=== PATIENT | male | born 1935 | race Caucasian/White ===

== ENCOUNTER 2019-10-14 14:15 | Inpatient (IN) | payer MEDICARE, BC ==
[~2019-10-14] VITALS: Ht 177.8 cm; Wt 77.1 kg
[2019-10-14] MEDS ORDERED: NORVASC2.5 MG PO (14:28)
[2019-10-14] MEDS ORDERED: COREG12.5 MG PO (14:28)
[2019-10-14] MEDS ORDERED: ASPIRIN81 MG PO (14:28)
[2019-10-14] MEDS ORDERED: VALSARTAN-HCTZ1 EAC3 PO (14:29)
[2019-10-14] MEDS ORDERED: PRAVACHOL40 MG PO (14:30)
[2019-10-14] MEDS ORDERED: XALATAN 0.0052.5 ML EACH EYE (14:30)
[2019-10-14 14:59] LABS: BASOPHILS 0.1 % (0-2); EOSINOPHILS 0.3 % (0-7); HEMATOCRIT 42.9 % (42.0-54.0); HEMOGLOBIN 14.6 g/dL (13.5-17.5); IMMATURE GRANULOCYTES 0.4 % (0-5); LYMPHOCYTES 4.7 % (15-50); MCH 34.5 pg (26.0-34.0); MCV 101.4 fL (80.0-100.0); MEAN PLATELET VOLUME 11.3 fL (7.4-10.4); MONOCYTES 10.2 % (2-11); NEUTROPHILS 84.3 % (40-80); PLATELET COUNT 189 10x3/uL (130-400); RBC 4.23 10x6/uL (4.20-6.10); RDW 12.9 % (11.5-14.5); WBC 15.6 10x3/uL (4.8-10.8)
[2019-10-14 15:20] LABS: ANION GAP 14.5 mmol/L (8-16); CALCIUM 8.2 mg/dL (8.5-10.1); CARBON DIOXIDE 27.2 mmol/L (21.0-32.0); CREATININE - SERUM 2.6 mg/dL (0.6-1.3); POTASSIUM - SERUM 3.7 mmol/L (3.5-5.1)
[2019-10-14 15:26] LABS: ALBUMIN 2.6 g/dL (3.4-5.0); BILIRUBIN - TOTAL 0.77 mg/dL (0.2-1.3); PROTEIN - SERUM 6.4 g/dL (6.4-8.2)
[2019-10-14 16:30] LABS: APPEARANCE CLEAR (CLEAR); BILIRUBIN NEGATIVE (NEGATIVE); COLOR YELLOW (YELLOW); GLUCOSE NEGATIVE (NEGATIVE); KETONE NEGATIVE (NEGATIVE); NITRITE NEGATIVE (NEGATIVE); PROTEIN NEGATIVE (NEGATIVE); SPECIFIC GRAVITY 1.025 (1.005-1.020); UROBILINOGEN NORMAL (NORMAL)
--- NOTE | 2019-10-14 16:56 | NUR ---
TO CT VIA W/C
--- NOTE | 2019-10-14 18:36 | MORECARE ---
CASE MANAGEMENT DISCHARGE SUMMARY PATIENT: CORRIE OLIVA UNIT: [id number] ADM DATE: 10/14/19 AGE: 83 : 36 SEX: M ROOM/BED: D.2206 AUTHOR: TAVO STARKS PHYSICIAN: REFERRING PHYSICIAN: CHARLES HERNANDEZ MD DATE OF SERVICE: 10/14/19 Discharge Plan Patient Name: CORRIE OLIVA [facility] [facility] 1935 Planned Disposition: Home Anticipated Discharge Date: 10/16/19 Discharge Date: Expected LOS: 2 Initial Reviewer: [email or web address] Initial Review Date: 10/14/2019 Generated: 10/14/19 7:36 pm DCPIA - Discharge Planning Initial Assessment Updated by [email or web address]: Sweta Kerns on 10/14/19 6:35 pm * Is the patient Alert and Oriented? Yes * How many steps to enter\exit or inside your home? nONE * PCP Dr. Hernandez * Pharmacy [address] * Preadmission Environment Home with Family * ADLs Independent * Equipment Glucometer * List name and contact numbers for known caregivers / representatives who currently or will assist patient after discharge: Martha Oliva - spouse - [phone] * Additional services required to return to the preadmission environment? No * Can the patient safely return to the preadmission environment? Yes * Has this patient been hospitalized within the prior 30 days at any hospital? No Patient Name: CORRIE OLIVA Page [id number] at 1836 All edits/amendments must be made on the electronic document DICTATION DATE: 10/14/191834 CONTOUR PATH TAPE MILL OPERATOR: KETTY 10/14/191834 RPT#: [id number] DC DATE: STATUS: ADM IN [facility] [address] [place] [address] END OF REPORT
--- NOTE | 2019-10-14 18:42 | MORECARE ---
CASE MANAGEMENT DISCHARGE SUMMARY PATIENT: CORRIE OLIVA UNIT: [id number] ADM DATE: 10/14/19 AGE: 83 : 36 SEX: M ROOM/BED: D.2206 AUTHOR: RAUDELDOC PHYSICIAN: REFERRING PHYSICIAN: CHARLES HERNANDEZ MD DATE OF SERVICE: 10/14/19 Discharge Plan Patient Name: CORRIE OLIVA Facility: [facility]:[place] : 1935 Planned Disposition: Home Anticipated Discharge Date: 10/16/19 Discharge Date: Expected LOS: 2 Initial Reviewer: [email or web address] Initial Review Date: 10/14/2019 Generated: 10/14/19 7:42 pm DCP- Discharge Planning Updated by [email or web address]: Sweta Kerns on 10/14/19 5:[address] DC PLAN: Return home independently with his . ANTICIPATED DC NEEDS: denied known dc needs at time of assessment in the ER. CM met with patient to complete initial dc planning assessment. CM educated patient on the CM role and verbal consent given by patient to complete assessment. CM verified patient's address, phone number, and emergency contact phone numbers. Patient lives at home with his . At discharge patient plans to return home and feels this is a safe discharge. CM discussed availability of home health, rehab services, and medical equipment. Patient denied known discharge needs at this time. Transportation provider at discharge will be his . CM will continue to follow and will assist as needed with dc plans/needs. Sweta Kerns RN, [facility] DCPIA - Discharge Planning Initial Assessment Updated by [email or web address]: Sweta Kerns on 10/14/19 6:35 pm * Is the patient Alert and Oriented? Yes * How many steps to enter\exit or inside your home? nONE * PCP Dr. Hernandez * Pharmacy [facility] [address] [facility] * Preadmission Environment Home with Family * ADLs Independent * Equipment Glucometer * List name and contact numbers for known caregivers / representatives who currently or will assist patient after discharge: Martha Oilva - spouse - [phone] * Additional services required to return to the preadmission environment? No * Can the patient safely return to the preadmission environment? Yes * Has this patient been hospitalized within the prior 30 days at any hospital? No Last DP export: 10/14/19 5:36 p Patient Name: CORRIE OLIVA Page 81747 at 1842 All edits/amendments must be made on the electronic document DICTATION DATE: 10/14/191841 CINETECHNICIAN: KETTY 10/14/191841 RPT#: [id number] DC DATE: STATUS: ADM IN [facility] [address] [place] [address] END OF REPORT
[2019-10-14 20:12] VITALS: BP 93/50; BMI 24.4
[2019-10-15 00:56] VITALS: BP 93/51
[2019-10-15 05:46] VITALS: BP 95/55
[2019-10-15 06:38] LABS: BASOPHILS 0.1 % (0-2); EOSINOPHILS 0.4 % (0-7); HEMATOCRIT 38.9 % (42.0-54.0); IMMATURE GRANULOCYTES 0.4 % (0-5); LYMPHOCYTES 4.1 % (15-50); MCH 33.7 pg (26.0-34.0); MCHC 33.4 g/dL (31.0-37.0); MCV 100.8 fL (80.0-100.0); MEAN PLATELET VOLUME 11.4 fL (7.4-10.4); MONOCYTES 11.1 % (2-11); NEUTROPHILS 83.9 % (40-80); PLATELET COUNT 176 10x3/uL (130-400); RBC 3.86 10x6/uL (4.20-6.10); RDW 12.8 % (11.5-14.5); WBC 14.1 10x3/uL (4.8-10.8)
[2019-10-15 06:54] LABS: INR 0.96 (0.85-1.17); PROTIME 12.8 SECONDS (11.6-15.0)
[2019-10-15 07:05] LABS: ALBUMIN 2.3 g/dL (3.4-5.0); ANION GAP 12.3 mmol/L (8-16); BILIRUBIN - DIRECT 0.36 mg/dL (0.00-0.30); BILIRUBIN - INDIRECT 0.48 mg/dL (0.00-1.00); BILIRUBIN - TOTAL 0.84 mg/dL (0.2-1.3); CALCIUM 7.8 mg/dL (8.5-10.1); CARBON DIOXIDE 28.3 mmol/L (21.0-32.0); POTASSIUM - SERUM 3.6 mmol/L (3.5-5.1); PROTEIN - SERUM 5.9 g/dL (6.4-8.2)
--- NOTE | 2019-10-15 07:14 | HP ---
PATIENT: CORRIE SEVILLA MEDICAL RECORD: [id number] ACCOUNT: [id number] LOCATION:D.MS [address] : 37 ADMISSION DATE: 10/14/19 PCP: CHARLES NGO MD HISTORY AND PHYSICAL EXAMINATION REASON FOR ADMISSION: Abdominal pain, vomiting, and lightheadedness. HISTORY OF PRESENT ILLNESS: The patient is an 83-year-old male with history of CAD, post-occlusion of the RCA and LAD, cardiomyopathy, hypertension, dyslipidemia, and carotid stenosis with a left chronic carotid occlusion. He had noted onset of some abdominal discomfort and constipation four days prior to admission. He has a history of chronic rectal stenosis and sometimes has trouble passing bowels. His blood pressure because quite elevated, abdominal pain and [place]. The laboratory and x-ray was not ordered but said they did not know what was quite wrong with him, but to go on clear liquids, which he did. He did develop some diarrhea. He came to the office today. He said he has been unable to eat or drink anything very much due to abdominal discomfort. No nausea or vomiting, however. He came to the office today and his pressure was 80/60 and he was directly sent to the ED for evaluation. He has been given IV fluids with some improvement in his blood pressure. 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 Last echo 12/08 with LVEF 45% with basal and mid inferior akinesis, mild LVH. Carotid ultrasound of 12/08 showed a 50% RCA stenosis. Also, alcohol excess. PAST SURGICAL HISTORY: He has had bilateral foot for Pes planus and cardiac catheterization as mentioned above. Surgery on his ankles was ankle fusions. FAMILY HISTORY: Father at 59 of stroke. Mother at 49 from CAD and acute myocardial infarction. SOCIAL HISTORY: He was a pack smoker for many years, quit about 10 years ago. His states he drinks starting about 1:00 in the afternoon until he falls asleep at night, hard liquor. He has never been admitted to the hospital for alcohol withdrawal. ALLERGIES: CODEINE. HOME MEDICATIONS: Which she has missed the last few days, amlodipine 2.5 mg p.o. daily, Coreg 12.5 mg b.i.d., valsartan/HCTZ 320/25 one p.o. q.a.m., pravastatin 80 mg with evening meal, and aspirin 81 mg daily. REVIEW OF SYSTEMS: GENERAL: Malaise without fever for the last 3-4 days, poor appetite. HEENT: No recent visual change, sinus congestion, or sore throat. RESPIRATORY: Mild short of breath on exertion, recent cough, congestion or hemoptysis. CARDIAC: No recent exertional chest pain, claudication or edema. HISTORY AND PHYSICAL [id number] CORRIE SEVILLA GASTROINTESTINAL: Nausea with abdominal discomfort, constipation and loose stools for the last 3-4 days. He has had vague abdominal pain, not severe. ENDOCRINE: Denies polyuria, polydipsia, heat or cold intolerance. NEUROLOGIC: No history of stroke with carotid occlusion on the left. INTEGUMENT: No recent headache, seizure disorder. MUSCULOSKELETAL: Chronic lumbago without sciatica. GENITOURINARY: Nocturia twice nightly. PHYSICAL EXAMINATION: GENERAL: Alert 83-year-old male at this time, in no acute distress. VITAL SIGNS: Show temperature 98.4 Fahrenheit, pulse 96, respirations of 20, blood pressure 91/44, sat 96% on room air. HEENT: Normocephalic. Eyes are clear. NECK: He has faint bruit in the right carotid. II/ left is unremarkable. HEART: Regular rate and rhythm, without MGR. PMI appropriate. LUNGS: Distant breath sounds with increased AP diameter. No rales. ABDOMEN: Slightly distended with hypoactive bowel sounds, nontender throughout. RECTAL: Deferred due to rectal stenosis. EXTREMITIES: No CC&E. He has evidence of previous pes planus and ankle fusion changes. No acrocyanosis. NEUROLOGIC: Oriented to person, place, and time. Cranial nerves intact. Gait was normal. LABORATORY DATA: His white count of 15.6 thousand with 84 polys, 4 lymphs. Platelet count 109,000, H and H is 14.6 and 42.9 with MCV of 101.4. Chemistries: BUN and creatinine are 82 and 2.6. His last creatinine in my office was 1.5. Liver functions are normal. Lipase and amylase are normal. Potassium is 3.7. UA shows specific gravity 1.025, otherwise unremarkable. Abdominal x-ray unremarkable. CT of the abdomen with oral contrast shows gallbladder wall thickening with pericholecystic fluid and inflammation of the adjacent fat and multiple small calculi are present. Calculus in the region of the common bile duct. No bile duct dilatation is noted. Pancreas appears normal. Bilateral perinephric inflammation nonspecific and extensive aortic atherosclerosis with maximum diameter of 2.9 cm. ASSESSMENT: Acute cholelithiasis/cholecystitis, acute renal failure due to dehydration, prerenal. History of vascular pathology with carotid occlusive disease, coronary artery disease, and peripheral vascular disease, hypertension, hyperlipidemia, alcohol excess. PLAN: Discussed with his , she states he drinks fairly heavily at home. We will place on banana bag, IV fluids for hydration, and surgical consult. I will place him on IV antibiotics in the interim. TRANSINT:[id number] Voice Confirmation ID: [id number] DOCUMENT ID: [id number] HISTORY AND PHYSICAL [id number] CORRIE SEVILLA TIMOTHY MD at 0714 CC: [id number] DICTATION DATE: 10/14/19 172 MACHINE TOOL BUILDER: 10/14/19 1810 ADM IN [place] [id number] [place] [address]
--- NOTE | 2019-10-15 07:57 | NUR ---
ALERT AND ORIENTED. LUNGS CLEAR BILATERALLY. HEART SOUNDS S1 AND S2 HEARD IN ALL SANDOVAL. BOWEL SOUNDS ACTIVE X 4. SKIN INTACT WITHOUT REDNESS. IV TO RFA PATENT WITHOUT REDNESS. DENIES NEEDS. BED LOW. CALL SALAS AND PERSONAL ITEMS IN REACH. AT BEDSIDE. WILL CONTINUE TO MONITOR.
[2019-10-15 08:30] VITALS: BP 124/82
--- NOTE | 2019-10-15 09:38 | NUR ---
CONSENTS OBTAINED FOR PROCEDURE TOMORROW 10/16/2019. CLEAR LIQUID TRAY ORDERED PER DR SARAVIA. PATIENT DOES NOT WANT TO WEAR TELEMETRY. REMOVED AND RETURNED TO [facility] AT [facility]. IV UNHOOKED PER PATIENT REQUEST TO WALK AROUND UNIT.
[2019-10-15 12:55] VITALS: Ht 177.8 cm; Wt 77.1 kg
--- NOTE | 2019-10-15 13:48 | NUR ---
RESTING IN BED. DENIES NEEDS. WILL CONTINUE TO MONITOR.
[2019-10-15 15:06] VITALS: BP 93/51
--- NOTE | 2019-10-15 15:47 | NUR ---
PATIENT UP WALKING AROUND UNIT. CONFUSED. REORIENTED TO PLACE AND SITUATION. FALL PRECAUTIONS PLACED ON PATIENT. ATTEMPTED TO CALL . VOICEMAIL LEFT. WILL CONTINUE TO MONITOR.
[2019-10-15 16:45] VITALS: BP 97/51
--- NOTE | 2019-10-15 19:18 | NUR ---
IN BED WITH EYES CLOSED, RESTING QUIETLY, AT BEDSIDE. NO S/S OF DISTRESS NOTED. RESP EVEN AND UNLABORED. ABLE TO VOICE ALL NEEDS. WILL NOTE ANY CHANGE.
[2019-10-16] VITALS (15 sets, daily range): BP systolic 91–108; BP diastolic 45–65
--- NOTE | 2019-10-16 05:08 | NUR ---
I have reviewed this patient and I concur with the Shift Assessment completed by the Licensed Practical Nurse today this shift.
[2019-10-16 05:19] LABS: ALBUMIN 2.1 g/dL (3.4-5.0); BILIRUBIN - TOTAL 0.82 mg/dL (0.2-1.3); CALCIUM 7.8 mg/dL (8.5-10.1); CARBON DIOXIDE 26.1 mmol/L (21.0-32.0); CREATININE - SERUM 1.8 mg/dL (0.6-1.3); PROTEIN - SERUM 6.1 g/dL (6.4-8.2)
[2019-10-16 05:32] LABS: ANION GAP 13.7 mmol/L (8-16)
[2019-10-16 05:48] LABS: POTASSIUM - SERUM 2.8 mmol/L (3.5-5.1)
--- NOTE | 2019-10-16 09:03 | NUR ---
0830 NPO, PREOP MEDS GIVEN, TAKEN TO SURGERY PER BED
[2019-10-16] MEDS ORDERED: HYDROCODON-ACE1 EAC7 PO (10:37)
[2019-10-16] MEDS ORDERED: LEVOFLOXACIN500 MG PO (10:40)
--- NOTE | 2019-10-16 11:18 | NUR ---
RETURNED TO UNIT FROM PACU, 3 LAP SITES, NO BLEEDING NOTED, VITALS WNL, IN ROOM, NO DISTRESS NOTED
--- NOTE | 2019-10-16 16:05 | MORECARE ---
CASE MANAGEMENT DISCHARGE SUMMARY PATIENT: CORRIE OLIVA UNIT: [id number] ADM DATE: 10/14/19 AGE: 83 : 36 SEX: M ROOM/BED: D.2206 AUTHOR: TAVO STARKS PHYSICIAN: REFERRING PHYSICIAN: CHARLES HERNANDEZ MD DATE OF SERVICE: 10/16/19 Discharge Plan Patient Name: CORRIE OLIVA Facility: [facility]:[place] : 1935 Planned Disposition: Home Anticipated Discharge Date: 10/16/19 Discharge Date: Expected LOS: 2 Initial Reviewer: [email or web address] Initial Review Date: 10/14/2019 Generated: 10/16/19 5:04 pm Comments DCP- Discharge Planning Updated by [email or web address]: Carla Rivera on 10/16/19 2:[address] CM explained IMM to patient and family, patient received a copy, and additional copy placed on the chart. DCP- Discharge Planning Updated by [email or web address]: Sweta Kerns on 10/14/19 5:[address] DC PLAN: Return home independently with his . ANTICIPATED DC NEEDS: denied known dc needs at time of assessment in the ER. CM met with patient to complete initial dc planning assessment. CM educated patient on the CM role and verbal consent given by patient to complete assessment. CM verified patient's address, phone number, and emergency contact phone numbers. Patient lives at home with his . At discharge patient plans to return home and feels this is a safe discharge. CM discussed availability of home health, rehab services, and medical equipment. Patient denied known discharge needs at this time. Transportation provider at discharge will be his . CM will continue to follow and will assist as needed with dc plans/needs. Sweta Kerns RN, [facility] DCPIA - Discharge Planning Initial Assessment Updated by [email or web address]: Sweta Kerns on 10/14/19 6:35 pm * Is the patient Alert and Oriented? Yes * How many steps to enter\exit or inside your home? nONE * PCP Dr. Hernandez * Pharmacy [facility] [address] [facility] * Preadmission Environment Home with Family * ADLs Independent * Equipment Glucometer * List name and contact numbers for known caregivers / representatives who currently or will assist patient after discharge: Martha Oliva - spouse - [phone] * Additional services required to return to the preadmission environment? No * Can the patient safely return to the preadmission environment? Yes * Has this patient been hospitalized within the prior 30 days at any hospital? No Coverage Notice Reviewer: [email or web address] Vick Rivera Notice Issued Date-Time: 10/16/2019 15:20 Notice Type: IM Discharge Notice Notice Delivered To: Patient Relationship to Patient: Power Machine Operator Name: Delivery Method: HAND - Hand Delivered Sammie Days: Prior Verbal Notification: Recipient Understood Notice: Yes Recipient Signature: Yes Med Rec Note Co-signed by Attending: Coverage Notice Comment: Last DP export: 10/14/19 5:42 p Patient Name: CORRIE OLIVA Page [id number] at 1605 All edits/amendments must be made on the electronic document DICTATION DATE: 10/16/191603 SALES REPRESENTATIVE GIRLS' APPAREL: KETTY 10/16/19 160 RPT#: [id number] DC DATE: STATUS: ADM IN [facility] [address] [place] [address] END OF REPORT
--- NOTE | 2019-10-16 19:32 | NUR ---
1899 PT NO VOID SINCE SURGERY, EXPLAINED IMPORTANCE TO PT AND , PT BECAME IRRITATED THAT I WAS RUSHING HIM SO HE WASNT IN THE MOOD TO URINATE, NIGHT NURSE AWARE
--- NOTE | 2019-10-16 20:00 | NUR ---
RESTING COMFORTABLY IN BED WITH AT BEDSIDE. A/O WITH NO SIGNS OF ACUTE DISTRESS. IV TO THE LT FOREARM WITH NO REDNESS OR SWELLING. LAP SITES NOTED TO THE ABDOMEN X3 WITH NADEEN DRAINING BLOODY OUTPUT. ABDOMEN FIRM. BED ALARM ON AND NC @4L. DENIES NO OTHER NEEDS AT THIS TIME. CONTINUE PLAN OF CARE.
[2019-10-16 20:15] LABS: ANION GAP 10.9 mmol/L (8-16); CARBON DIOXIDE 26.3 mmol/L (21.0-32.0); CREATININE - SERUM 1.6 mg/dL (0.6-1.3); POTASSIUM - SERUM 4.2 mmol/L (3.5-5.1)
[2019-10-17] VITALS: BP 98/50
--- NOTE | 2019-10-17 02:03 | NUR ---
HASN'T VOIDED SO BLADDER SCAN PERFORMED. BLADDER SCAN SHOWEED 715. IN AND OUT CATH PERFORMED. DRAINED 900ML OF URINE. PT TOLERATED WELL. DENIES NO OTHER NEEDS AT THIS TIME. CONTINUE TO MONITOR.
[2019-10-17 04:00] VITALS: BP 95/51
[2019-10-17 06:50] LABS: BASOPHILS 0.3 % (0-2); EOSINOPHILS 0 % (0-7); HEMOGLOBIN 10.7 g/dL (13.5-17.5); IMMATURE GRANULOCYTES 0.6 % (0-5); LYMPHOCYTES 10.9 % (15-50); MCH 33.5 pg (26.0-34.0); MCHC 32.4 g/dL (31.0-37.0); MEAN PLATELET VOLUME 10.8 fL (7.4-10.4); MONOCYTES 7.1 % (2-11); NEUTROPHILS 81.1 % (40-80); PLATELET COUNT 185 10x3/uL (130-400); RBC 3.19 10x6/uL (4.20-6.10); RDW 13.2 % (11.5-14.5)
[2019-10-17 06:53] LABS: MCV 103.4 fL (80.0-100.0); WBC 7.8 10x3/uL (4.8-10.8)
[2019-10-17 07:04] LABS: ALBUMIN 1.7 g/dL (3.4-5.0); ANION GAP 11.2 mmol/L (8-16); BILIRUBIN - DIRECT 0.22 mg/dL (0.00-0.30); BILIRUBIN - INDIRECT 0.26 mg/dL (0.00-1.00); BILIRUBIN - TOTAL 0.48 mg/dL (0.2-1.3); CARBON DIOXIDE 23.7 mmol/L (21.0-32.0); CREATININE - SERUM 1.3 mg/dL (0.6-1.3); POTASSIUM - SERUM 3.9 mmol/L (3.5-5.1); PROTEIN - SERUM 5.5 g/dL (6.4-8.2)
[2019-10-17 08:49] VITALS: BP 106/68
--- NOTE | 2019-10-17 09:15 | NUR ---
PT AMBULATING WITH PT AT THIS TIME. NO ACUTE DISTRESS NOTED. O2 @ 4L NC IN PLACE. IV TO LEFT FOREARM WITH D5 1/2 WITH 20KCL @ 75ML/HR INFUSING VIA PUMP. SITE WITHOUT REDNESS OR EDEMA. DENIES PAIN AT THIS TIME. LAP STIES TO ABDOMEN X 3 SITES WITHOUT REDNESS EDEMA OR DRAINAGE. NADEEN DRAIN INTACT TO RIGHT SIDE WITH SCANT AMOUNT OF BLOODY DRAINAGE. DENIES FURTHER NEEDS AT THIS TIME. CL WITHIN REACH. ENCORUAGED TO CALL WITH NEEDS. CONTINUE POC
[2019-10-17 12:45] VITALS: BP 118/64
--- NOTE | 2019-10-17 14:16 | NUR ---
NUTRITION F/U PT WITH VISITOR AT BEDSIDE. TOLERATING FULL LIQUID DIET WITH 50 TO 75% INTAKE. WILL CONTINUE TO PROVIDE DIET, MONITOR PO INTAKE. RD FOLLOWING
[2019-10-17 17:49] VITALS: BP 112/68
[2019-10-17 20:00] VITALS: BP 80/40
--- NOTE | 2019-10-17 20:00 | NUR ---
ALERT RRESTING IN BED, DENIES PAIN OR NEEDS AT THIS TIME, SEE SHIFT ASSESSMENT, CALL LIGHT IN REACH
[2019-10-18] VITALS: BP 115/59
[2019-10-18 04:00] VITALS: BP 100/61
[2019-10-18 05:57] LABS: ANION GAP 10.8 mmol/L (8-16); CALCIUM 7.2 mg/dL (8.5-10.1); CARBON DIOXIDE 25.2 mmol/L (21.0-32.0); CREATININE - SERUM 1.3 mg/dL (0.6-1.3); MAGNESIUM - SERUM 2.9 mg/dL (1.8-2.4)
[2019-10-18 06:11] LABS: BASOPHILS 0.1 % (0-2); EOSINOPHILS 1.2 % (0-7); HEMATOCRIT 33.3 % (42.0-54.0); HEMOGLOBIN 10.3 g/dL (13.5-17.5); IMMATURE GRANULOCYTES 0.9 % (0-5); LYMPHOCYTES 7.2 % (15-50); MCH 31.6 pg (26.0-34.0); MCHC 30.9 g/dL (31.0-37.0); MCV 102.1 fL (80.0-100.0); MEAN PLATELET VOLUME 11.2 fL (7.4-10.4); MONOCYTES 5.8 % (2-11); NEUTROPHILS 84.8 % (40-80); RBC 3.26 10x6/uL (4.20-6.10); RDW 13.4 % (11.5-14.5)
[2019-10-18 06:16] LABS: PLATELET COUNT 242 10x3/uL (130-400)
[2019-10-18 09:16] VITALS: BP 89/62
--- NOTE | 2019-10-18 12:01 | NUR ---
Rehab Note- Acute Inpatient Rehab prescreen order received. The patient is a good inpatient rehab candidiate if in agreeance with [facility] Acute Inpatient Rehab, we'll accept when medically stable and ready for discharge from the acute hospital. Thank you for this referral! Melchor Franks RN Clinical Liaison, [facility] Rehab
[2019-10-18 13:10] VITALS: BP 121/61
--- NOTE | 2019-10-18 16:04 | MORECARE ---
CASE MANAGEMENT DISCHARGE SUMMARY PATIENT: CORRIE OLIVA UNIT: [id number] ADM DATE: 10/14/19 AGE: 83 : 36 SEX: M ROOM/BED: D.2206 AUTHOR: RAUDELDOC PHYSICIAN: REFERRING PHYSICIAN: CHARLES HERNANDEZ MD DATE OF SERVICE: 10/18/19 Discharge Plan Patient Name: CORRIE OLIVA Facility: [facility]:[place] : 1935 Planned Disposition: Home Anticipated Discharge Date: 10/16/19 Discharge Date: Expected LOS: 2 Initial Reviewer: [email or web address] Initial Review Date: 10/14/2019 Generated: 10/18/19 5:04 pm Comments DCP- Discharge Planning Updated by [email or web address]: Shahnaz Mendez on 10/18/19 3:[address] PATIENT IS AGREEABLE TO INPATIENT REHAB AT [facility]. TRACEY SIGNED AT BEDSIDE AND IS AGREEABLE TOO. CM WILL CONTINUE TO FOLLOW AND ASSIST WITH DC PLANNING DCP- Discharge Planning Updated by [email or web address]: Carla Rivera on 10/16/19 2:[address] CM explained IMM to patient and family, patient received a copy, and additional copy placed on the chart. DCP- Discharge Planning Updated by [email or web address]: Sweta Kerns on 10/14/19 5:[address] DC PLAN: Return home independently with his . ANTICIPATED DC NEEDS: denied known dc needs at time of assessment in the ER. CM met with patient to complete initial dc planning assessment. CM educated patient on the CM role and verbal consent given by patient to complete assessment. CM verified patient's address, phone number, and emergency contact phone numbers. Patient lives at home with his . At discharge patient plans to return home and feels this is a safe discharge. CM discussed availability of home health, rehab services, and medical equipment. Patient denied known discharge needs at this time. Transportation provider at discharge will be his . CM will continue to follow and will assist as needed with dc plans/needs. Sweta Kerns RN, [facility] DCPIA - Discharge Planning Initial Assessment Updated by [email or web address]: Sweta Kerns on 10/14/19 6:35 pm * Is the patient Alert and Oriented? Yes * How many steps to enter\exit or inside your home? nONE * PCP Dr. Hernandez * Pharmacy [facility] [address] [facility] * Preadmission Environment Home with Family * ADLs Independent * Equipment Glucometer * List name and contact numbers for known caregivers / representatives who currently or will assist patient after discharge: Martha Oliva - [facility] - [phone] * Additional services required to return to the preadmission environment? No * Can the patient safely return to the preadmission environment? Yes * Has this patient been hospitalized within the prior 30 days at any hospital? No Coverage Notice Reviewer: [email or web address] Vick Rivera Notice Issued Date-Time: 10/16/2019 15:20 Notice Type: IM Discharge Notice Notice Delivered To: Patient Relationship to Patient: Chainstitch Elastic Attacher Name: Delivery Method: HAND - Hand Delivered Sammie Days: Prior Verbal Notification: Recipient Understood Notice: Yes Recipient Signature: Yes Med Rec Note Co-signed by Attending: Coverage Notice Comment: Reviewer: [email or web address] Vick Mendez Notice Issued Date-Time: 10/18/2019 15:59 Notice Type: Patient Choice Letter Notice Delivered To: Patient Relationship to Patient: Chainstitch Elastic Attacher Name: Delivery Method: HAND - Hand Delivered Sammie Days: Prior Verbal Notification: Recipient Understood Notice: Yes Recipient Signature: Yes Med Rec Note Co-signed by Attending: Coverage Notice Comment: INPATIENT REHAB AT [facility] Last DP export: 10/16/19 3:05 p Patient Name: CORRIE OLIVA Page 25726 at 1604 All edits/amendments must be made on the electronic document DICTATION DATE: 10/18/191603 ARCHITECTURAL ASSOCIATE: KETTY 10/18/19 160 RPT#: [id number] DC DATE: STATUS: ADM IN [facility] [address] [place] [address] END OF REPORT
--- NOTE | 2019-10-18 17:15 | NUR ---
PATIENT DISCHARGED TO REHAB WITH NADEEN DRAIN EMPTIED WITH 20CC NOTED. PT AND VERBALIZED UNDERSTANDING OF DISCHARGE INSTRUCTIONS.
--- NOTE | 2019-10-18 18:20 | MORECARE ---
CASE MANAGEMENT DISCHARGE SUMMARY PATIENT: CORRIE OLIVA UNIT: [id number] ADM DATE: 10/14/19 AGE: 83 : 37 SEX: M ROOM/BED: D.2206 AUTHOR: RAUDEL,DOC PHYSICIAN: REFERRING PHYSICIAN: CHARLES HERNANDEZ MD DATE OF SERVICE: 10/18/19 Discharge Plan Patient Name: CORRIE OLIVA Facility: [facility]:[place] : 1935 Planned Disposition: Home Anticipated Discharge Date: 10/16/19 Discharge Date: 10/18/2019 Expected LOS: 2 Initial Reviewer: [email or web address] Initial Review Date: 10/14/2019 Generated: 10/18/19 7:20 pm Comments DCP- Discharge Planning Updated by [id number]: Shahnaz Mendez on 10/18/19 3:[address] PATIENT IS AGREEABLE TO INPATIENT REHAB AT [facility]. TRACEY SIGNED AT BEDSIDE AND IS AGREEABLE TOO. CM WILL CONTINUE TO FOLLOW AND ASSIST WITH DC PLANNING DCP- Discharge Planning Updated by [email or web address]: Carla Rivera on 10/16/19 2:[address] CM explained IMM to patient and family, patient received a copy, and additional copy placed on the chart. DCP- Discharge Planning Updated by [email or web address]: Sweta Kerns on 10/14/19 5:[address] DC PLAN: Return home independently with his . ANTICIPATED DC NEEDS: denied known dc needs at time of assessment in the ER. CM met with patient to complete initial dc planning assessment. CM educated patient on the CM role and verbal consent given by patient to complete assessment. CM verified patient's address, phone number, and emergency contact phone numbers. Patient lives at home with his . At discharge patient plans to return home and feels this is a safe discharge. CM discussed availability of home health, rehab services, and medical equipment. Patient denied known discharge needs at this time. Transportation provider at discharge will be his . CM will continue to follow and will assist as needed with dc plans/needs. Sweta Kerns RN, [facility] DCPIA - Discharge Planning Initial Assessment Updated by [email or web address]: Sweta Kerns on 10/14/19 6:35 pm * Is the patient Alert and Oriented? Yes * How many steps to enter\exit or inside your home? nONE * PCP Dr. Hernandez * Pharmacy [address] [facility] * Preadmission Environment Home with Family * ADLs Independent * Equipment Glucometer * List name and contact numbers for known caregivers / representatives who currently or will assist patient after discharge: Martha Oliva - [facility] - [phone] * Additional services required to return to the preadmission environment? No * Can the patient safely return to the preadmission environment? Yes * Has this patient been hospitalized within the prior 30 days at any hospital? No Coverage Notice Reviewer: [email or web address] Vick Rivera Notice Issued Date-Time: 10/16/2019 15:20 Notice Type: IM Discharge Notice Notice Delivered To: Patient Relationship to Patient: Truck Loader Name: Delivery Method: HAND - Hand Delivered Sammie Days: Prior Verbal Notification: Recipient Understood Notice: Yes Recipient Signature: Yes Med Rec Note Co-signed by Attending: Coverage Notice Comment: Reviewer: [id number] - Shahnaz Mendez Notice Issued Date-Time: 10/18/2019 15:59 Notice Type: Patient Choice Letter Notice Delivered To: Patient Relationship to Patient: Truck Loader Name: Delivery Method: HAND - Hand Delivered Sammie Days: Prior Verbal Notification: Recipient Understood Notice: Yes Recipient Signature: Yes Med Rec Note Co-signed by Attending: Coverage Notice Comment: INPATIENT REHAB AT [facility] Last DP export: 10/18/19 3:04 p Patient Name: CORRIE OLIVA Page [id number] at 1820 All edits/amendments must be made on the electronic document DICTATION DATE: 10/18/191819 RAW MATERIAL HANDLER: KETTY 10/18/191819 RPT#: [id number] DC DATE:10/18/19 STATUS: DIS IN [facility] [address] [place] [address] END OF REPORT
--- NOTE | 2019-10-18 20:29 | NUR ---
OT NOTE: PT COMPLETED STANDING BALANCE WITH HYGIENE TASKS AT SINK LEVEL WITH SBA. PT COMPLETED BED MOB WITH SBA. PT STATED HE HAS PAIN IN ABDOMINAL AREA. NURSING AWARE. [phone] THANK YOU,LUANA MCDOWELL
== END 2019-10-18 17:15 | DRG 853 ==
LOC: D.ER 14:15 → D.MS 17:46
PROVIDERS: Family Medicine; Surgery; ADMIT Family Medicine; ATTEND Family Medicine
PROC: 0FT44ZZ Resection of Gallbladder, Percutaneous Endoscopic Approach (ICD-10-PCS; principal; 2019-10-16 09:30)
DX: A41.9 Sepsis, unspecified organism (principal); K65.9 Peritonitis, unspecified; G92 Toxic encephalopathy; K80.00 Calculus of gallbladder with acute cholecystitis without obstruction; N17.9 Acute kidney failure, unspecified; K82.A2 Perforation of gallbladder in cholecystitis; K82.A1 Gangrene of gallbladder in cholecystitis; I25.10 Atherosclerotic heart disease of native coronary artery without angina pectoris; I10 Essential (primary) hypertension; E78.5 Hyperlipidemia, unspecified; J44.9 Chronic obstructive pulmonary disease, unspecified

== ENCOUNTER → 2020-01-29 12:43 | Outpatient (CLI) | payer MEDICARE, BC ==
[2019-10-31 10:18] VITALS: BMI 24.3
[~2020-01-29 12:43] MED LIST: ACETAMINOPHEN500 M1 PO; ASPIRIN81 MG PO; CARAFATE1 G PO; COREG12.5 MG PO; HYDROCODON-ACE1 EAC7 PO; LEVOFLOXACIN500 MG PO; LIBRIUM5 MG PO; MEGACE400 MG/10 PO; NITROQUICK0.4 MG SL; NORVASC2.5 MG PO; PRAVACHOL40 MG PO; THERAGRAN M [BK1 TAB PO; VALSARTAN-HCTZ1 EAC3 PO; VOLTAREN100 GM TOPICAL; XALATAN 0.0052.5 ML EACH EYE
== END | disposition home or self-care (01) ==
LOC: D.MRI 12:43
PROVIDERS: ATTEND Orthopaedic Surgery
DX: M86.071 Acute hematogenous osteomyelitis, right ankle and foot (principal)

== ENCOUNTER → 2020-01-30 14:55 | Outpatient (CLI) | payer MEDICARE, BC ==
[2019-10-31 10:18] VITALS: BMI 24.3
== END | disposition home or self-care (01) ==
LOC: D.MRI 14:55
PROVIDERS: ATTEND Orthopaedic Surgery
DX: M86.071 Acute hematogenous osteomyelitis, right ankle and foot (principal)

== ENCOUNTER 2020-02-14 09:31 | Outpatient (CLI) | payer MEDICARE, BC ==
[~2020-02-14] VITALS: Ht 177.8 cm; Wt 70.3 kg
--- NOTE | ~2020-02-14 | HEMODYNAMI ---
PATIENT:CORRIE SEVILLA MEDICAL RECORD: [id number] : 37 LOCATION:[facility] ADMISSION DATE: 02/14/20 Generatedon:02/14/202015:52 Patient name: CORRIE SEVILLA Patient #: [id number] SSN: : 1935 Date of study: 02/14/2020 Page: Of Hemodynamic Procedure Report Patient Data Patient Demographics Procedure consent was obtained First Name: CORRIE Gender: Male Last Name: ROEL : 1935 Patient #: [id number] Age: 84 year(s) Race: Unknown Additional ID: [id number] Contact details Address: [address] [place] [address] State: [place] City: [facility] Zip code: [address] Past Medical History Allergies Allergen Reaction Date Comments Reported Codeine 02/14/2020 Admission Admission Data Admission Date: 02/14/2020 Admission Time: 9:31 Procedure Procedure Types Cath Procedure Peripheral Cath Diagnostic Procedure Abd/Extremity Extremities Bilat Lower Extremity Procedure Description Procedure Date Procedure Date: 02/14/2020 Procedure Start Time: 13:20 Procedure End Time: 15:51 Procedure Staff Name Function Yuri Victoria MD Performing Physician ZAY HUNT RT Monitor Joaquín Shepherd RT Scrub Elena Barton RN Nurse Bruno Amaodr CRNA Additional personnel Procedure Data Cath Procedure Fluoroscopy Diagnostic fluoroscopy Total fluoroscopy Time: 40 time: 40 min min Diagnostic fluoroscopy Total fluoroscopy dose: 675 dose: 675 mGy mGy Contrast Material Contrast Material Type Amount (ml) Isovue 300 215 Entry Location Entry Primary Successful Side Size Upsize Upsize Entry Closure Succes sful Closure Location (Fr) 1 (Fr) 2 (Fr) Remarks Device Remarks Femoral Left 5 Fr 6 Fr 6 Fr Exoseal artery Long Short Procedure Medications Medication Administration Route Dosage Heparin Flush Bag added to field 3 bags (1000units/500ml NS) Lidocaine 1% added to field 20 Heparin Bolus 5000 units Heparin Bolus I.V. 2000 units Nitroglycerin IC/IA 100 mcg Refer to Anesthesia Notes for Sedation Medications Hemodynamics Rest Heart Rate: 67 (bpm) Snapshots Pre Cath Intra NCS Post Cath Vital Signs Time Heart Resp SPO2 etCO2 NIBP (mmHg) Rhythm Pain Sedation Rate (ipm) (%) (mmHg) Status Level (bpm) 12:43:51 72 17 98 24.7 148/90(125) NSR 0 (11) 10(A) , No pain 12:48:02 68 10 100 28.4 159/83(117) NSR 0 (11) 10(A) , No pain 12:52:21 78 14 100 0 176/68(109) NSR 0 (11) 10(A) , No pain 12:56:51 71 15 100 7.4 109/58(76) NSR 0 (11) 10(A) , No pain 13:00:57 70 16 100 2.2 91/57(68) NSR 0 (11) 10(A) , No pain 13:04:54 70 16 100 3.7 102/62(85) NSR 0 (11) 10(A) , No pain 13:08:58 71 15 99 11.9 106/57(79) NSR 0 (11) 10(A) , No pain 13:13:02 69 15 100 4.4 99/61(78) NSR 0 (11) 10(A) , No pain 13:17:04 69 14 99 0 105/55(82) NSR 0 (11) 10(A) , No pain 13:21:07 69 15 99 1.4 105/59(90) NSR 0 (11) 10(A) , No pain 13:25:09 69 15 99 2.2 106/64(89) NSR 0 (11) 10(A) , No pain 13:29:13 68 14 99 0 102/61(87) NSR 0 (11) 10(A) , No pain 13:33:16 67 14 99 0.7 103/55(86) NSR 0 (11) 10(A) , No pain 13:37:20 71 14 99 0.7 91/53(73) NSR 0 (11) 10(A) , No pain 13:41:20 67 14 99 2.2 99/51(78) NSR 0 (11) 10(A) , No pain 13:45:24 65 13 99 13.4 86/53(66) NSR 0 (11) 10(A) , No pain 13:49:23 65 13 99 4.5 77/49(71) NSR 0 (11) 10(A) , No pain 13:53:19 65 13 98 0 81/50(66) NSR 0 (11) 10(A) , No pain 13:57:16 64 13 99 4.4 85/47(70) NSR 0 (11) 10(A) , No pain 14:01:14 68 13 99 1.4 81/51(77) NSR 0 (11) 10(A) , No pain 14:05:09 65 14 99 0.7 92/54(79) NSR 0 (11) 10(A) , No pain 14:09:09 62 13 99 0.7 107/56(84) NSR 0 (11) 10(A) , No pain 14:13:09 62 14 99 2.9 115/68(93) NSR 0 (11) 10(A) , No pain 14:17:15 63 15 99 4.4 107/64(91) NSR 0 (11) 10(A) , No pain 14:21:16 61 14 99 2.9 105/61(87) NSR 0 (11) 10(A) , No pain 14:25:16 60 15 99 1.4 119/68(103) NSR 0 (11) 10(A) , No pain 14:29:24 61 14 99 5.9 115/59(90) NSR 0 (11) 10(A) , No pain 14:33:32 62 14 99 0 113/53(92) NSR 0 (11) 10(A) , No pain 14:37:39 60 13 99 0 102/51(79) NSR 0 (11) 10(A) , No pain 14:41:43 59 14 99 4.4 101/51(84) NSR 0 (11) 10(A) , No pain 14:45:49 61 14 99 3.7 90/48(70) NSR 0 (11) 10(A) , No pain 14:49:49 60 13 99 0 95/50(76) NSR 0 (11) 10(A) , No pain 14:53:53 65 13 99 5.9 86/48(66) NSR 0 (11) 10(A) , No pain 14:57:52 61 13 99 0 87/48(66) NSR 0 (11) 10(A) , No pain 15:01:52 61 13 99 5.9 94/48(81) NSR 0 (11) 10(A) , No pain 15:05:53 60 14 99 0.7 106/54(80) NSR 0 (11) 10(A) , No pain 15:09:57 57 13 99 3.7 109/59(91) NSR 0 (11) 10(A) , No pain 15:13:59 57 14 99 1.4 111/67(90) NSR 0 (11) 10(A) , No pain 15:18:58 55 14 99 5.9 119/69(99) NSR 0 (11) 10(A) , No pain 15:23:01 55 14 99 2.9 127/72(104) NSR 0 (11) 10(A) , No pain 15:27:07 56 14 99 5.2 120/73(104) NSR 0 (11) 10(A) , No pain 15:31:11 55 15 99 0 127/69(109) NSR 0 (11) 10(A) , No pain 15:35:17 58 14 99 4.4 131/74(101) NSR 0 (11) 10(A) , No pain 15:39:23 60 16 99 0 147/78(111) NSR 0 (11) 10(A) , No pain 15:43:35 53 13 100 4.4 143/79(115) NSR 0 (11) 10(A) , No pain 15:47:42 53 14 96 8.2 160/85(137) NSR 0 (11) 10(A) , No pain 15:51:56 54 12 0 157/83(136) NSR 0 (11) 10(A) , No pain Medications Time Medication Route Dose Verified Delivered Reason Notes Effectiveness by by 13:00:46 Refer to Yuri Welch Anesthesia Notes Esme Victoria MD for Sedation MD Medications 13:14:24 Heparin Flush added 3 Yuri Welch used for Bag to bags Esme Victoria MD procedure (1000units/500ml field NS) 13:15:10 Lidocaine 1% added 20ml Yuri Welch for local to vial Esme Victoria MD anesthetic field REYNOSO 13:45:10 Heparin Bolus 5000 Yuri Welch for units Esme Victoria MD anticoagulation 14:39:26 Heparin Bolus I.V. 2000 Yuri Welch for units Esme Victoria MD anticoagulation 14:50:04 Nitroglycerin 100 Yuri Welch used for IC/IA mcg Esme Victoria MD procedure MD Procedure Log Time Note 12:38:47 Joaquín Shepherd RT (R) (CV) sent for patient. Start room use. 12:38:48 Time tracking: Regular hours (M-F 7:00 - 5:00) 12:38:53 Patient received from Outpatients to IR Alert and oriented. Tansferred to table in Supine position. 12:38:55 Signed procedure consent form obtained from patient. 12:38:56 Warm blankets applied, and eliane hugger turned on for patient comfort. 12:38:56 Correct patient and procedure confirmed by team. 12:38:57 ECG and BP/O2 sat monitors applied to patient. 12:38:59 - 12:39:04 H&P Date Dictated: 02/14/2020 H&P Addendum completed by physician on day of procedure. (MUST COMPLETE FOR ALL OUTPATIENTS). 12:39:05 Pre-procedure instructions explained to patient. 12:39:06 Pre-op teaching completed and patient verbalized understanding. 12:39:08 Family in waiting room. 12:39:10 Patient NPO since Midnight. 12:39:20 Patient allergic to Codeine 12:39:27 Is the patient allergic to Iodine/contrast media? No. 12:39:56 Is patient on blood thinner?Yes 12:40:01 ACC The patient was administered the following blood thiners within the last 24 hours: ACCAspirin 12:40:22 Patient diabetic? No. 12:40:28 If diabetic: On Metformin? No 12:40:29 - 12:40:30 ----see anethesia note for re-sedation anethesia assessment.---- 12:41:02 Pre procedure: right dorsailis pedis pulse Doppler 12:41:04 Pre procedure: left dorsailis pedis pulse Doppler 12:41:07 Pre procedure: right posterior tibial pulse Doppler 12:41:10 Pre procedure: left posterior tibial pulse Doppler 12:41:26 Left groin area was prepped with chlora-prep and draped in sterile fashion 12:41:28 - 12:41:36 Use device set IR Diagnostic 12:41:37 ACIST Syringe (96459) opened to sterile field. 12:41:37 ACIST Hand Control (03727) opened to sterile field. 12:41:38 ACIST Manifold (21208) opened to sterile field. 12:41:38 Bag Decanter () opened to sterile field. 12:41:39 Sterile Angiographic Pack opened to sterile field. 12:41:39 Tegaderm 4 x 4 (1626W) opened to sterile field. 12:42:42 TUBING Contrast Injection High Pressure (HJI992O) opened to sterile field. 12:42:42 BENTSON 260 wire (G01300) opened to sterile field. 12:42:43 SHEATH 5FR [place] (HOW037) opened to sterile field. 12:42:43 DOC .035 wire (H56234) opened to sterile field. 12:42:55 Vital chart was started 12:43:01 Baseline sample Acquired. 12:43:04 Full Disclosure recording started 12:43:07 - 12:51:57 Angiodynamics Omniflush 5Fr 65cm ([id number]) opened to sterile field. 13:00:46 Refer to Anesthesia Notes for Sedation Medications was administered by Yuri Victoria MD; ; Verbal order read back and verified. 13:12:20 Physician arrived 13:12:55 Baseline sample Acquired. 13:13:51 --------ALL STOP TIME OUT------ 13:13:51 Final Timeout: patient, procedure, and site verified with staff and physician. All members of the team are in agreement. 13:14:09 Left groin site verified by team. 13:14:12 Fire Safety Assessment: A--An alcohol-based skin anteseptic being used preoperatively., C--Open oxygen or nitrous oxide is being used. 13:14:18 3a) 45-59 Moderately reduced kidney function. 13:14:24 Heparin Flush Bag (1000units/500ml NS) 3 bags added to field was administered by Yuri Victoria MD; used for procedure; Verbal order read back and verified. 13:14:40 Maximum allowable contrast dose (3.7 X eGFR X 0.75)130 ml. 13:15:03 Bruno Amador CLIENT CARE REPRESENTATIVE present and monitoring patient for TIVA. 13:15:10 Lidocaine 1% 20ml vial added to field was administered by Yuri Victoria MD; for local anesthetic; Verbal order read back and verified. 13:17:08 MICROPUNCTURE 4FR Cook (M76514) opened to sterile field. 13:17:14 Procedure started. 13:19:06 AMPLATZ Super Stiff 75cm wire ([id number]) opened to sterile field. 13:20:28 Local anesthetic to left femerol artery with Lidocaine 1% by Yuri Victoria MD.INITIAL ACCESS ONLY 13:21:35 Access obtained with 4Fr micropunture. 13:22:45 A 5 Fr sheath was inserted into the Left Femoral artery 13:26:04 CXI Catheter 90cm (E58085) opened to sterile field. 13:26:05 TORQUE DEVICE PLASTIC .038 ( TD01) opened to sterile field. 13:26:06 GLIDE CATHETER 5FR ANGLED 65cm (CG507) opened to sterile field. 13:32:40 AMPLATZ Super stiff 180cm wire ([id number]) opened to sterile field. 13:34:09 Sheath upsized to a 6 Fr Long. 13:34:44 AMPLATZ Short Taper 260cm wire ([id number]) opened to sterile field. 13:39:03 AMPLATZ Super stiff Straight 260cm wire ([id number]) opened to sterile field. 13:42:27 CXI SUPPORT .035 135 CM STR catheter (K53175) opened to sterile field. 13:45:10 Heparin Bolus 5000 units was administered by Yuri Victoria MD; for anticoagulation; Verbal order read back and verified. 13:50:09 ROADRUNNER .035 260 glide wire (J49540) opened to sterile field. 13:53:32 Trailblazer 0.035 135cm catheter ([id number]) opened to sterile field. 13:57:17 CHOICE PT Extra Support J 300cm guide wire ([id number]) opened to steril e field. 14:02:58 INFLATOR BasixTOUCH (XI1737) opened to sterile field. 14:03:15 Inflate balloon Inflation number: 1 A MAVERICK 2.5 X 15 balloon ([id number]) was prepped and advanced across the Undefined1 , then inflated. 14:15:34 CHOICE PT Extra Support J 300cm guide wire (1267257W4) opened to steril e field. 14:18:26 GLIDE CATHETER 5FR ANGLED 100cm (CG508) opened to sterile field. 14:22:53 DIAMONDBACK Viperwire Advance Coronary guidewire ([id number]) opened to sterile field. 14:24:59 CHOICE PT Extra Support J 300cm guide wire ([id number]) opened to steril e field. 14:39:26 Heparin Bolus 2000 units I.V. was administered by Yuri Victoria MD; for anticoagulation; Verbal order read back and verified. 14:40:21 Inflate balloon Inflation number: 2 A CHOCOLATE 3.0 x 40 x 150 balloon ([id number]) was prepped and advanced across the Undefined1 , then inflated.. 14:40:21 SHEATH 6FR [place] (HXJ351) opened to sterile field. 14:45:42 Inflate balloon Inflation number: 1 A CHOCOLATE 4.0 x 40 x 135 balloon ([id number]) was prepped and advanced across the Undefined2 , then inflated . 14:49:02 Inflate balloon Inflation number: 1 A CHOCOLATE 5.0 x 40 x 120 balloon ([id number]) was prepped and advanced across the Undefined3 , then inflated. 14:50:04 Nitroglycerin IC/IA 100 mcg was administered by Yuri Victoria MD; used fo r procedure; Verbal order read back and verified. 14:50:56 SPIDER EMBOLIC PROTECTION DEVICE 6MM ([id number]) opened to sterile field. 14:59:21 HawkoBizimply Medium Atherectomy System (H1-M) opened to sterile field. 15:17:03 Inflate balloon Inflation number: 2 A INPACT ADMIRAL 5 X 250 X 130 ([id number]) was prepped and advanced across the Undefined2 , then inflated. 15:31:09 Sheath removed intact; hemostasis achieved with Exoseal to the Left Femoral artery. 15:31:09 Sheath upsized to a 6 Fr Short. 15:31:20 EXOSEAL 6Fr (EX600) opened to sterile field. 15:31:26 Procedure ended.(Physican Out) 15:32:01 Fluoroscopy time 40.00 minutes. 15:32:22 Fluoroscopy dose: 675 mGy 15:32:22 Flurop Dose total: 675 15:33:13 Contrast amount:Isovue 300 215ml. 15:33:15 Maximum allowable dose exceeded? Yes. 15:33:25 Insertion/operative site no bleeding no hematoma. 15:33:30 Post-op/insertion site Left Femoral artery dressed using a 4 x 4 and Tegaderm. 15:33:34 Procedure and supply charges have been captured, reviewed, submitted an d are correct. 15:51:49 Vital chart was stopped 15:51:54 Patient transfered to Outpatients with Stretcher. 15:51:56 Procedure ended. 15:51:56 Full Disclosure recording stopped Intervention Summary Intervention Notes Time ActionType Lesion and Equipment Used Action# Pressure Duration Attributes 14:03:15 Inflate Undefined1 MAVERICK 2.5 X 15 1 0 00:00 balloon balloon ([id number]) 14:40:21 Inflate Undefined1 CHOCOLATE 3.0 x 2 0 00:00 balloon 40 x 150 balloon ([id number]) 14:45:42 Inflate Undefined2 CHOCOLATE 4.0 x 1 0 00:00 balloon 40 x 135 balloon ([id number]) 14:49:02 Inflate Undefined3 CHOCOLATE 5.0 x 1 0 00:00 balloon 40 x 120 balloon ([id number]) 15:17:03 Inflate Undefined2 INPACT ADMIRAL 5 2 0 00:00 balloon X 250 X 130 ([id number]) Device Usage Item Name Manufacture Quantity Catalog Number Hospital Part Cu rrent Minimal Lot# / Charge Number Stock Stock Serial# Code ACIST Syringe Acist Medical 1 79654 503163 037021 98 6021 20 (77712) Systems Inc ACIST Hand Acist Medical 1 74785 265929 288696 98 6452 5 Control (70945) Systems Inc ACIST Manifold Acist Medical 1 99942 109245 186027 98 6468 5 (70401) Systems Inc Bag Decanter Microtek 1 2001S 799284 09033 98 4388 5 (2001S) Medical Inc. Sterile Cardinal 1 [id number] 875830 99 7859 5 Angiographic [facility] Tegaderm 4 x 4 3M 1 1626W 630651 173432 99 0107 5 (1626W) TUBING Contrast [facility] Medical 1 RAJ424Z 688798 930106 99 9326 5 Injection High Pressure (SOG390J) BENTSON 260 wire Cook Medical 1 Q42184 576510 278086 99 9974 5 (N38764) SHEATH 5FR Terumo 1 WBN338 981440 536501 99 3931 5 [place] (CNQ002) DOC .035 wire Cook Medical 1 Y29777 976697 99 9367 5 (N09651) Angiodynamics Angiodynamics 2 25293389 193732 273537 99 9890 5 Omniflush 5Fr 65cm (41465744) MICROPUNCTURE 4FR Cook [employer] 1 Z33647 019302 339058 99 9686 5 Friday (S08347) AMPLATZ Super [place] 1 [id number] 794630 796095 99 9831 5 Stiff 75cm wire Scientific ([id number]) CXI Catheter 90cm Cook Medical 1 P32300 165610 666321 99 9877 5 (E74298) TORQUE DEVICE [place] 1 TD01 316087 843301 99 9202 5 PLASTIC .038 ( Scientific TD01) GLIDE CATHETER Terumo 1 CG507 805876 99 9604 5 5FR ANGLED 65cm (CG507) AMPLATZ Super [place] 1 [id number] 697971 540299 99 9863 5 [id number] stiff 180cm wire Scientific ([id number]) AMPLATZ Short [place] 1 [id number] 766704 169570 99 9962 5 [id number] Taper 260cm wire Scientific ([id number]) AMPLATZ Super [place] 1 [id number] 558948 59897 99 9945 5 [id number] stiff Straight Scientific 260cm wire ([id number]) CXI SUPPORT .035 Cook [employer] 1 Z38330 841620 186227 99 9771 5 [id number] 135 CM STR catheter (D68558) ROADRUNNER .035 Cook [employer] 1 U23009 447001 594699 99 9747 5 39858844 260 glide wire (Q88810) Trailblazer 0.035 Medtronic 1 ASC-035-135 635593 50840 99 9960 5 135cm catheter (DVV846843) CHOICE PT Extra [place] 3 [id number] 126682 549392 99 8805 5 97042175 Support J 300cm Scientific 64719970 guide wire [id number] ([id number]) INFLATOR Mer[employer] 1 HJ5293 941797 982725 99 9626 5 BasixTOUCH (IY3742) MAVERICK 2.5 X 15 [place] 1 [id number] 477373 590606 99 9813 1 balloon Scientific ([id number]) GLIDE CATHETER Terumo 1 CG508 296889 28993 99 9855 4 5FR ANGLED 100cm (CG508) DIAMONDBACK Cardiovascular 1 [facility]-01270WI 162430 604546 99 9992 5 Viperwire [employer] Coronary guidewire ([id number]) SHEATH 6FR Terumo 1 JGW054 708186 093394 99 4812 40 [place] (GCZ429) CHOCOLATE 3.0 x Medtronic 1 [id number] O 894921 070269 99 9990 5 40 x 150 balloon TW ([id number]) CHOCOLATE 4.0 x Medtronic 1 [id number] O 055105 17215 99 9988 5 40 x 135 balloon TW ([id number]) CHOCOLATE 5.0 x Medtronic 1 [id number] O 262327 99 9993 5 40 x 120 balloon TW ([id number]) Hawkone Medium Medtronic 1 H1-M 519705 99 329748 5 Atherectomy System (H1-M) INPACT ADMIRAL 5 Medtronic 1 [id number] 989752 7214875 99 9996 1 X 250 X 130 ([id number]) SPIDER EMBOLIC Medtronic 1 [id number]-XM-318-320 554885 99 9978 5 PROTECTION DEVICE 6MM ([id number]) EXOSEAL 6Fr Cardinal 1 EX600 589527 939501 99 5829 10 (EX600) Health Signature Audit [place] Stage Time Signature Unsigned Intra-Procedure 02/14/2020 ZAY HUNT RT 3:52:24 PM (R) [id number] [place] [address]
[2020-02-14 09:45] LABS: BASOPHILS 0.4 % (0-2); EOSINOPHILS 3.3 % (0-7); HEMOGLOBIN 14.5 g/dL (13.5-17.5); IMMATURE GRANULOCYTES 0.2 % (0-5); LYMPHOCYTES 16.2 % (15-50); MCH 29.3 pg (26.0-34.0); MCHC 31.5 g/dL (31.0-37.0); MCV 92.9 fL (80.0-100.0); MONOCYTES 6.2 % (2-11); NEUTROPHILS 73.7 % (40-80); RBC 4.95 10x6/uL (4.20-6.10); RDW 14.6 % (11.5-14.5); WBC 8.2 10x3/uL (4.8-10.8)
[2020-02-14 09:48] LABS: PLATELET COUNT 293 10x3/uL (130-400)
[2020-02-14 10:01] LABS: ANION GAP 14.3 mmol/L (8-16); CALCIUM 9.5 mg/dL (8.5-10.1); CARBON DIOXIDE 24.6 mmol/L (21.0-32.0); CREATININE - SERUM 1.5 mg/dL (0.6-1.3); POTASSIUM - SERUM 4.9 mmol/L (3.5-5.1)
[2020-02-14 10:03] LABS: APTT 29.3 SECONDS (22.8-39.4); INR 0.94 (0.85-1.17); PROTIME 12.5 SECONDS (11.6-15.0)
[2020-02-14] MEDS ORDERED: DIOVAN80 MG PO (10:56)
[2020-02-14] MEDS ORDERED: TORSEMIDE10 MG PO (10:56)
[2020-02-14] MEDS ORDERED: KLOR-CON 1010 MEQ PO (10:57)
[2020-02-14 11:13] VITALS: BP 164/65; Ht 177.8 cm; Wt 70.3 kg
== END 2020-02-14 19:00 ==
LOC: D.SP 09:31 → D.RAD 12:00 → D.SP 19:00
PROVIDERS: General Practice; ATTEND Internal Medicine Interventional Cardiology
DX: I70.201 Unspecified atherosclerosis of native arteries of extremities, right leg (principal)

== ENCOUNTER 2020-03-30 06:42 | Outpatient (CLI) | payer MEDICARE, BC ==
[~2020-03-30] VITALS: Ht 177.8 cm; Wt 72.7 kg
--- NOTE | ~2020-03-30 | HEMODYNAMI ---
PATIENT:CORRIE SEVILLA MEDICAL RECORD: [id number] : 37 [facility] [id number] ADMISSION DATE: 03/30/20 Generatedon:03/30/202012:51 Patient name: CORRIE SEVILLA Patient #: [id number] SSN: : 1935 Date of study: 03/30/2020 Page: Of Hemodynamic Procedure Report Patient Data Patient Demographics Procedure consent was obtained First Name: CORRIE Gender: Male Last Name: ROEL : 1935 Patient #: [id number] Age: 84 year(s) Race: Unknown Additional ID: [id number] Contact details [address]: [address] [place] [address] State: [place] City: [place] Zip code: [address] Past Medical History Allergies Allergen Reaction Date Comments Reported Codeine 02/14/2020 Codeine 03/30/2020 Admission Admission Data Admission Date: 03/30/2020 Admission Time: 6:42 Procedure Procedure Types Cath Procedure Peripheral Cath Diagnostic Procedure Berry Grower Peripheral Procedures Abd/Extremity Extremities Bilat Lower Extremity Procedure Description Procedure Date Procedure Date: 03/30/2020 Procedure Start Time: 11:01 Procedure Staff Name Function Yuri Victoria MD Performing Physician Tori Caballero RT Company Laborer Elena Barton RN Nurse Joaquín Shepherd RT Scrub Procedure Data Cath Procedure Fluoroscopy Diagnostic fluoroscopy Total fluoroscopy Time: time: 26.1 min 26.1 min Diagnostic fluoroscopy Total fluoroscopy dose: 339 dose: 339 mGy mGy Procedure Medications Medication Administration Route Dosage Heparin Flush Bag added to field 3 bags (1000units/500ml NS) Lidocaine 1% added to field 20 Heparin Bolus I.V. 5000 units Nitroglycerin IC/IA I.A. 300 mcg Hemodynamics Rest Pre Cath Intra NCS Post Cath Medications Time Medication Route Dose Verified Delivered Reason Notes Eff ectiveness by by 10:35:03 Heparin Flush added 3 bags Yuri Welch used for Bag to Esme Victoria MD procedure (1000units/500ml field NS) 10:35:16 Lidocaine 1% added 20ml Yuri Welch for local to vial Esme Victoria MD anesthetic field MD 11:30:40 Heparin Bolus I.V. 5000 Yuri Parker Per units Mick Victoria RN physician 12:02:37 Nitroglycerin I.A. 300mcg Yuri Welch used for IC/IA Esme Victoria MD procedure MD Procedure Log Time Note 9:55:51 Use device set IR Diagnostic 10:18:01 DOC .035 wire ([id number]) opened to sterile field. 10:18:02 Micropuncture VSI 4FR kit opened to sterile field. 10:18:03 SHEATH 5FR [place] (OUK561) opened to sterile field. 10:18:04 CHRISTIE 260 wire (P23804) opened to sterile field. 10:18:05 TUBING Contrast Injection High Pressure (ZNE607J) opened to sterile field. 10:18:06 Tegaderm 4 x 4 (1626W) opened to sterile field. 10:18:07 Sterile Angiographic Pack opened to sterile field. 10:18:08 Bag Decanter (2002S) opened to sterile field. 10:18:09 ACIST Manifold (65160) opened to sterile field. 10:18:10 ACIST Hand Control (99636) opened to sterile field. 10:18:11 ACIST Syringe (16279) opened to sterile field. 10:18:19 Time tracking: Regular hours (M-F 7:00 - 5:00) 10:18:35 Plan of Care:Hemodynamics will remain stable., Cardiac rhythm will remain stable., Comfort level will be maintained., Respiratory function will remain adequate., Patient/ family verbilizes understanding of procedure., Procedure tolerated without complication., Recovers from procedure without complications.. 10:18:51 Patient received from Outpatients to IR Alert and oriented. Tansferred to table in Supine position. 10:18:54 Signed procedure consent form obtained from patient. 10:18:59 H&P Date Dictated: 03/30/2020 Within 30 days and on chart., H&P Addendum completed by physician on day of procedure. (MUST COMPLETE FOR ALL OUTPATIENTS). 10:19:05 Pre-procedure instructions explained to patient. 10:19:06 Pre-procedure instructions explained to patient. 10:19:07 Pre-op teaching completed and patient verbalized understanding. 10:19:10 Family unavailable. 10:19:12 Patient NPO since Midnight. 10::20 Patient allergic to Codeine 10::24 Is the patient allergic to Iodine/contrast media? No. 10::16 Is patient on blood thinner?Yes 10::21 ACC The patient was administered the following blood thiners within the last 24 hours: ACCAspirin, ACCPlavix 10::24 Patient diabetic? No. 10:20:28 - 10::28 ----Pre-sedation anethsthesia assessment.----SEE ANESTHESIA NOTES FOR MONITORING OF PATIENT DURING PROCEDURE 10:20:59 - 10:21:06 - 10:35:03 Heparin Flush Bag (1000units/500ml NS) 3 bags added to field was administered by Yuri Victoria MD; used for procedure; Verbal order read back and verified. 10:35:16 Lidocaine 1% 20ml vial added to field was administered by Yuri Victoria MD; for local anesthetic; Verbal order read back and verified. 10:51:43 Pre procedure: right dorsailis pedis pulse Doppler 10:51:48 Pre procedure: left dorsailis pedis pulse Doppler 10:51:52 Pre procedure: right posterior tibial pulse Doppler 10:51:56 Pre procedure: left posterior tibial pulse Doppler 10:52:49 GLIDE WIRE ANGLE 260cm (VA7921) opened to sterile field. 10:59:29 Right groin area was prepped with chlora-prep and draped in sterile fashion 10:59:37 3a) 45-59 Moderately reduced kidney function. 10:59:43 Fire Safety Assessment: A--An alcohol-based skin anteseptic being used preoperatively., C--Open oxygen or nitrous oxide is being used. 11:00:06 GLIDE CATHETER 5FR ANGLED 65cm (CG507) opened to sterile field. 11:00:07 Angiodynamics Omniflush 5Fr 65cm ([id number]) opened to sterile field. 11:00:34 Physician arrived 11:00:35 --------ALL STOP TIME OUT------ 11:00:36 Final Timeout: patient, procedure, and site verified with staff and physician. All members of the team are in agreement. 11:01:12 Procedure started. 11:01:12 Full Disclosure recording started 11:01:16 Local anesthetic to right femoral artery with Lidocaine 1% by Yuri Victoria MD.INITIAL ACCESS ONLY 11:01:21 Arterial access obtained using ultrasound guidance. 11:11:49 AMPLATZ Super Stiff 75cm wire ([id number]) opened to sterile field. 11:13:03 TORQUE DEVICE PLASTIC .038 ( TD01) opened to sterile field. 11:19:35 Cook RAABE 6FR. 90cm guide sheath opened to sterile field. 11:20:29 CXI SUPPORT .035 135 CM STR catheter (Z90405) opened to sterile field. 11:26:35 SHEATH 6FR Destination (RSR01) opened to sterile field. 11:30:40 Heparin Bolus 5000 units I.V. was administered by Elena Barton RN; Per physician; Verbal order read back and verified. 11:41:31 ROADRUNNER .035 260 glide wire (T39979) opened to sterile field. 11:44:48 Navicross Support Straight .035 150cm catheter (ZV13873) opened to sterile field. 11:44:49 CHOICE PT Extra Support J 300cm guide wire ([id number]) opened to steril e field. 11:53:09 Inflate balloon Inflation number: 1 A NANOCROSS ELITE 2.5MM-2 MM X 210 X 150 ([id number]) was prepped and advanced across the Undefined1 , then inflated . 11:53:58 INFLATOR BasixTOUCH (UX6957) opened to sterile field. 11:56:05 Hawkone Medium Atherectomy System (H1-M) opened to sterile field. 11:56:06 [place] 1 Small Atherectomy catheter (H1S) opened to sterile field. 12:02:37 Nitroglycerin IC/IA 300mcg I.A. was administered by Yuri Victoria MD; use d for procedure; Verbal order read back and verified. 12:25:38 Procedure ended.(Physican Out) 12:25:52 Fluoroscopy time 26.10 minutes. 12:25:58 Fluoroscopy dose: 339 mGy 12:25:58 Flurop Dose total: 339 12:26:14 Procedure and supply charges have been captured, reviewed, submitted an d are correct. 12:49:43 Report given to PCU. Intervention Summary Intervention Notes Time ActionType Lesion and Equipment Used Action# Pressure Duration Attributes 11:53:09 Inflate Undefined1 NANOCROSS ELITE 1 0 00:00 balloon 2.5MM-2 MM X 210 X 150 ([id number]) Device Usage Item Name Manufacture Quantity Catalog Number Hospital Part Curre nt Minimal Lot# / Charge Number Stock Stock Serial# Code DOC .035 wire Cook Medical 1 [id number] 430134 76302 7 5 ([id number]) Micropuncture VSI VASCULAR 1 7266V 393564 26535 0 5 VSI 4FR kit SOLUTIONS SHEATH 5FR Terumo 1 DSV203 243968 152142 86052 6 5 [place] (XHN726) CHRISTIE 260 wire Cook Medical 1 V90775 690257 37023 18808 9 5 [id number] ([id number]) TUBING Contrast Merit Medical 1 [id number] 233716 875558 30687 1 5 Injection High Pressure (VGA732O) Tegaderm 4 x 4 3M 1 1626W 810946 616327 05800 7 5 (1626W) Sterile Cardinal 1 [id number] 483279 84905 5 5 Angiographic Health Pack Bag Decanter Microtek 1 2001S 085340 49964 08375 7 5 () Medical Inc. ACIST Manifold Acist Medical 1 14584 090557 133570 29243 1 5 (41565) Systems Inc ACIST Hand Acist Medical 1 05076 077974 996798 73972 5 5 Control (14509) Systems Inc ACIST Syringe Acist Medical 1 38243 389912 047019 08681 3 20 (50357) Systems Inc GLIDE WIRE ANGLE Terumo 1 ID3954 865879 383281 86089 1 5 260cm (XV6837) GLIDE CATHETER Terumo 1 CG507 684079 16707 4 5 5FR ANGLED 65cm (CG507) Angiodynamics Angiodynamics 1 34691071 821929 445658 83829 4 5 Omniflush 5Fr 65cm (51908935) AMPLATZ Super [place] 1 [id number] 593252 192644 65260 7 5 Stiff 75cm wire Scientific ([id number]) TORQUE DEVICE [place] 1 TD01 222244 728980 56576 0 5 PLASTIC .038 ( Scientific TD01) Cook RAABE 6FR. CelluComp 1 I90014 645222 02448 2 5 90cm guide sheath CXI SUPPORT .035 Cook Medical 1 P72732 789614 971002 65090 2 5 135 CM STR catheter (C59471) SHEATH 6FR Terumo 1 RSR01 708860 23140 83159 8 5 Destination (RSR01) ROADRUNNER .035 Cook Medical 1 G26105 324002 170383 64686 9 5 [id number] 260 glide wire (U97233) Navicross Terumo 1 GY83507 629750 614935 85379 3 5 Support Straight .035 150cm catheter (OZ70059) CHOICE PT Extra [place] 1 [id number] 994361 20190326 53171 4 5 Support J 300cm Scientific guide wire (3437535G9) NANOCROSS ELITE Medtronic 1 [id number] 625959 53636 7 1 2.5MM-2 MM X 210 X 150 ([id number]) INFLATOR Merit Medical 1 VO6261 921395 759317 23395 0 5 BasixTOUCH (YA5105) Hawkone Medium Medtronic 1 H1-M 952555 87929 949 5 Atherectomy System (H1-M) TURBOHAWK 1 Medtronic 1 H1-S 924859 9600331 29369 6 5 Small Atherectomy catheter (H1S) Signature Audit [place] Stage Time Signature Unsigned Intra-Procedure 03/30/2020 Tori Caballero 12:51:04 PM RT(R) [facility] [address] [place] [address]
[~2020-03-30 06:42] MED LIST changes: +DIOVAN80 MG PO; +KLOR-CON 1010 MEQ PO; +TORSEMIDE10 MG PO
[2020-03-30 07:15] LABS: BASOPHILS 0.5 % (0-2); EOSINOPHILS 5.6 % (0-7); HEMATOCRIT 42.8 % (42.0-54.0); HEMOGLOBIN 13.6 g/dL (13.5-17.5); IMMATURE GRANULOCYTES 0.2 % (0-5); LYMPHOCYTES 20.6 % (15-50); MCH 30.1 pg (26.0-34.0); MCHC 31.8 g/dL (31.0-37.0); MCV 94.7 fL (80.0-100.0); MEAN PLATELET VOLUME 10.4 fL (7.4-10.4); MONOCYTES 8.4 % (2-11); NEUTROPHILS 64.7 % (40-80); PLATELET COUNT 201 10x3/uL (130-400); RBC 4.52 10x6/uL (4.20-6.10); RDW 13.8 % (11.5-14.5); WBC 6.2 10x3/uL (4.8-10.8)
[2020-03-30 07:28] LABS: APTT 26.3 SECONDS (22.8-39.4); INR 0.94 (0.85-1.17); PROTIME 12.5 SECONDS (11.6-15.0)
[2020-03-30 07:33] LABS: ANION GAP 10.1 mmol/L (8-16); CALCIUM 8.9 mg/dL (8.5-10.1); CARBON DIOXIDE 28.3 mmol/L (21.0-32.0); CREATININE - SERUM 1.4 mg/dL (0.6-1.3); POTASSIUM - SERUM 4.4 mmol/L (3.5-5.1)
[2020-03-30 07:45] VITALS: BP 147/72; Ht 177.8 cm; Wt 72.7 kg
[2020-03-30] MEDS ORDERED: PLAVIX75 MG PO (07:52)
[2020-03-30] MEDS ORDERED: ALEVE220 MG PO (07:53)
--- NOTE | 2020-03-30 15:46 | NUR ---
1340 VITAL SIGNS ARE BEING RECORDED ON POST PROCEDURE FORM AND IN PAPER CHART. 7496 DR CHANEL AT BEDSIDE TO FOLLOWUP WITH PT. RIGHT GROIN DRESSING IS CDI. NO HEMATOMA. ICE PACK TO RIGHT GROIN. FEM STOP DEVICE AT 38 AND ON RIGHT FEMORAL AREA. DR CHANEL ORDERED DEVICE TAKEN OFF AT 1700.
== END 2020-03-30 17:35 | disposition home or self-care (01) ==
LOC: D.SP 06:42 → D.RAD 13:00 → D.SP 17:35
PROVIDERS: ATTEND General Practice
DX: I70.212 Atherosclerosis of native arteries of extremities with intermittent claudication, left leg (principal); I10 Essential (primary) hypertension; Z72.0 Tobacco use

== ENCOUNTER 2020-12-08 20:19 | Inpatient (IN) | payer OTHER ==
[~2020-12-08] VITALS: Ht 177.8 cm; Wt 74.8 kg
[~2020-12-08 20:19] MED LIST changes: +ALEVE220 MG PO; +PLAVIX75 MG PO
[2020-12-09 04:37] VITALS: BP 120/78
--- NOTE | 2020-12-09 05:00 | NUR ---
I have reviewed this patient and I concur with the Shift Assessment completed by the Licensed Practical Nurse today this shift.
[2020-12-09 07:47] VITALS: BP 122/69
[2020-12-09 11:04] VITALS: BP 122/68; BMI 23.7
[2020-12-09 12:25] VITALS: BP 109/55
--- NOTE | 2020-12-09 17:59 | NUR ---
PATIENT WAS GIVEN ATIVAN AT HOSPICE NURSE REQUEST. PATIENT BECAME AGGITATED AND PULLED OUT CENTRAL LINE. SITE WNL. CALLED AND LEFT MESSAGE FOR HOSPICE NURSE TO COMMUNICATE THIS EVENT
--- NOTE | 2020-12-09 18:58 | NUR ---
BEDSIDE SHIFT REPORT COMPLETED, PT LYING IN BED NO DISTRESS NOTED WILL CONTNUE TO MONITOR PT CONTINUE UNDER [place] [facility] CARE
[2020-12-09 20:59] VITALS: BP 131/96
--- NOTE | 2020-12-10 01:45 | NUR ---
paged hospice nurse re pt c/o generalized pain no IV access no PO/SL PRN meds available.
--- NOTE | 2020-12-10 04:41 | NUR ---
PAGED HOSPICE NURSE AGAIN, NO RETURN CALL YET FROM EARLIER CALL PT WITHOUT IV ACCESS ALL PRN MEDS ARE IV, REPORTS PAIN AT TIME FREQUENTLY INCONTINENT OF URINE MAKING IT DIFFICULT TO REST/SLEEP
--- NOTE | 2020-12-10 04:49 | NUR ---
SPOKE TO [place] [facility]ICE NURSE OK TO PLACE PIV AND REPLACE HASTINGS CATH
[2020-12-10 08:16] VITALS: BP 124/66
--- NOTE | 2020-12-10 09:40 | NUR ---
PATIENT ABLE TO TAKE MEDICATION WITH THICKENED WATER, COMMISSIONED SECURITY OFFICER AT BEDSIDE ATTEMPTING TO FEED PATIENT. WILL CONTINUE WITH PLAN OF CARE
--- NOTE | 2020-12-10 09:59 | NUR ---
I have reviewed this patient and I concur with the Shift Assessment completed by the Licensed Practical Nurse today this shift.
--- NOTE | 2020-12-10 10:00 | NUR ---
ADMINISTERED SCHEDULED MEDICATION WELL PRN PAIN MEDICATION FOR AGITATION AND PAIN. ASSESSED AND CLEANED PATIENTS FEET AND LEFT TO AIR DRY, PER SHIP SUPERINTENDENT PATIENT TOOK 2 BITES OF SAUSAGE AND GRAVU AND SPIT BOTH OUT, TIRED A BANANA AND PATIENT STATED HE DID NOT LIKE IT. CONTINUE WITH PLAN OF CARE
--- NOTE | 2020-12-10 11:30 | NUR ---
PATIENT HOSPICE NURSE AT BEDSIDE, ANSWERED ALL QUESTIONS, SPOUSE AT BEDISDE WELL. PER HOSPICE NURSE PT RESP IS AT 8 WITH PERIODS OF APNEA, EXPLAINED JUST ADMINISTERED PRN PAIN MEDICATION, PATIENT SHOWS NO S/S OF DISTRESS, CONTINUE WITH PLAN OF CARE
--- NOTE | 2020-12-10 15:00 | NUR ---
PATIENTS DAUGHTER AND GRANDDAUGHTER HERE FROM [place], VISITING WITH PATIENT, NO NEEDS VOICED FROM ANYONE, NO S/S OF DISTRESS. CONTINUE WITH PLAN OF CARE
--- NOTE | 2020-12-10 17:30 | NUR ---
PATIENT FAMILY LEAVING, PER DAUGHTER PATIENT IS A LITTLE RESTLESS AND CHOLED ON WATER. PATIENT GRIMACING AND HAD A SCARE, ADMINISTERED PRN MEDICATION. CONTINUE WITH PLAN OF CARE
[2020-12-10 20:00] VITALS: BP 97/70
--- NOTE | 2020-12-11 09:39 | MORECARE ---
CASE MANAGEMENT DISCHARGE SUMMARY PATIENT: CORRIE SEVILLA UNIT: [id number] ADM DATE: 12/08/20 AGE: 85 : 36 SEX: M ROOM/BED: D.2210 AUTHOR: RAUDEL,DOC PHYSICIAN: REFERRING PHYSICIAN: SABAS PALOMARES MD DATE OF SERVICE: 12/11/20 Case Management Discharge Planning Summary DCP REVIEW SUMMARY ANTICIPATED D/C DATE: EXPECTED LOS : CASE STATUS: DCP Initiated INITIAL REVIEW: 12/08/2020 INITIAL REVIEWER: Shahnaz Mendez FINAL DISCHARGE DISPOSITION: : FINAL REVIEWER: FINAL REVIEW DATE: DCP Focus Questions & Answers - Added on: QUESTION: ANSWER : PATIENT: CORRIE SEVILLA ENCOUNTER: [id number] MEDICAL RECORD#: [id number] ADMISSION DATE: 12/08/2020 DISCHARGE DATE: ATTENDING MD: SABAS GAGE : AGE: 85 MARITAL STATUS: M DC PLAN ID: [id number] FACILITY: [facility] PRINTED ON: 12/11/20 9:39 CT All edits/amendments must be made on the electronic document DICTATION DATE: 12/11/20938 COURT SPECIALIST: DM 12/11/20938 RPT#: [id number] DC DATE: STATUS: ADM IN [facility] [address] [place] [address] END OF REPORT
--- NOTE | 2020-12-11 10:50 | NUR ---
PATIENT SPOUSE AT BEDSIDE, PATIENT WAS ABLE TO EAT A LITTLE MORE THIS MORNING AND HAS BEEN MORE ALERT, NO NEEDS VICED AT THIS TIME. CONTINUE WITH PLAN OF CARE
--- NOTE | 2020-12-11 12:09 | NUR ---
PATIENT FAMILY IN WITH MANAGER WHOLESALE AND HOSPICE NURSE, NO NEEDS VOICED BY FAMILY OR ANY OTHERS AT THIS TIME. CONTINUE WITH PLAN OF CARE
[2020-12-11 12:37] VITALS: BP 95/47
[2020-12-11 13:48] VITALS: Ht 177.8 cm; Wt 74.8 kg
--- NOTE | 2020-12-11 14:17 | NUR ---
I have reviewed this patient and I concur with the Shift Assessment completed by the Licensed Practical Nurse today this shift.
--- NOTE | 2020-12-11 14:46 | NUR ---
PATIENT IS VERY RESTLESS TRYING TO GET OUT OF BED, PATIENT HAS TAKEN GOWN OFF, TOLD EVS STAFF HE IS HURTING BUT DID NOT WANT NURSE, ASKED PATIENT HOW I CAN HELP TO MAKE HIM FEEL BETTER, PATIENT STATED " I THINK I'M HAVING AN EPISODE" HAD RN ASSIST IN PULLING PATIENT UPIN BED, ADMINISTERED PRN HALDOL, WRAPPED PT LEGS IN WITE CHUCKS TO CATCH WEEPING FROM LEGS. FAMILY AT BEDSIDE. NO NEEDS VOICED CONTINUE WITH PLAN OF CARE
[2020-12-11 20:00] VITALS: BP 114/77
--- NOTE | 2020-12-11 23:13 | HP ---
PATIENT: CORRIE SEVILLA MEDICAL RECORD: [id number] ACCOUNT: [id number] LOCATION:D.[facility] [address] : 37 ADMISSION DATE: 12/08/20 PCP: CHARLES HERNANDEZ MD HISTORY AND PHYSICAL EXAMINATION DATE OF ADMISSION INTO HOSPICE: 12/08/2020 HISTORY OF PRESENT ILLNESS: This is an 85-year-old white male previously followed by Dr. Hernandez. He has been admitted into [facility] for a couple of weeks, initially admitted with intractable vomiting, anorexia. He was found to be septic. He had colitis and Campylobacter diarrhea and MRSA UTI. He had significantly elevated liver enzymes. He was in the ICU for a period of time due to the sepsis, started on pressors to keep his blood pressure up. He had a history of cardiomyopathy with last echo prior to admission showing an ejection fraction of approximately 40%. An echocardiogram done during the hospitalization showed his ejection fraction now at 15%. He went in and out of atrial fibrillation and had significant mental status changes. Consults were to nephrology, pulmonary/critical care, cardiology, gastroenterology, hematology/oncology for all his medical problems. He completed antibiotics. He also has a long history of wounds on his feet and has been treated in wound clinic prior to admission. He continues to have wounds on his feet and they are actually worse. His quality of life is very poor. He is still not eating. He has required 7 liters of oxygen most recently, has a little pain and family has made decisions for comfort care and to put him in hospice. PAST MEDICAL HISTORY: Again history of coronary artery disease, history of cardiomyopathy with previous echo showing ejection fraction of 40%. 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 PAST SURGICAL HISTORY: Cholecystectomy, surgeries to both feet. HOME MEDICATIONS: Prior to admission included Questran, Xanax 0.25 mg twice a day, Tylenol as needed, potassium 10 mEq twice a day, valsartan 80 mg once a day, torsemide 10 mg once a day, pravastatin 80 mg once a day, aspirin 81 mg once a day. SOCIAL HISTORY: , retired. FAMILY HISTORY: Father at 59 of a stroke. Mother at 49 of an NE. HABITS: Former smoker and had at least 2 drinks a night. No illicit drug use. ALLERGIES: REPORTEDLY ONLY TO CODEINE. REVIEW OF SYSTEMS: GENERAL: He has undergone some weight loss over the last several weeks. HEENT: No particular sinus or allergy problems. RESPIRATORY: Has history of COPD, but on no regular inhalers or treatments. CARDIAC: Has history of coronary disease and cardiomyopathy as mentioned above. GENITOURINARY: Prior to admission, no significant problems there. GENITOURINARY: No significant problems there. MUSCULOSKELETAL: Has diffuse arthritic aches and pains. NEUROLOGIC: No migraines. No memory loss, no seizures. HISTORY AND PHYSICAL [id number] CORRIE SEVILLA PSYCHIATRIC: He has a history of some anxieties. PHYSICAL EXAMINATION: VITAL SIGNS: Temperature 98.1, pulse 100, respirations 22, blood pressure was 97/70, O2 sat 94% on 7 liters O2. GENERAL: He appears comfortable. He will wake up, look at me and say a few words. He is definitely confused. and daughter are at bedside. HEENT: Grossly within normal limits. NECK: Supple. No JVD or bruit. HEART: Regular rate and rhythm. LUNGS: Fairly clear. ABDOMEN: Soft, flat, nontender. EXTREMITIES: No edema. SKIN: He has multiple dry wounds on his feet. Mild surrounding erythema. ASSESSMENT: 1. Cardiomyopathy with ejection fraction of 15%. 2. Sepsis due to methicillin-resistant Staphylococcus aureus urinary tract infection and Campylobacter diarrhea. 3. Weight loss. 4. Hypoxia. PLAN: Discussed comfort care and hospice with the family at bedside. For now, we will keep him inpatient here, but discussed with the family that if he plateaus we may need to look for alternate discharge plans. We will start with morphine as needed, Ativan as needed, oxygen, and we will see if he eats. TRANSINT:[id number] Voice Confirmation ID: [id number] DOCUMENT ID: [id number] SABAS PALOMARES MD at 2313 CC: [id number] DICTATION DATE: 12/11/20 1012 CONCRETE ENGINEERING TECHNICIAN: 12/11/20 1355 ADM IN [place] [id number] [place] [id number]
[2020-12-12] VITALS: BP 120/59
[2020-12-12 04:00] VITALS: BP 95/61
--- NOTE | 2020-12-12 08:28 | NUR ---
PT PULLED UP IN BED AND REPOSITIONED. PT RECIEVED A SIP OF WATER REQUESTED AT A 90 DEGREE ANGLE. DIFFICULTY GETTING PULSE OX. PUT A WARM BLANKET AROUND EXTREMETIES AND WILL TRY AGAIN. CL IN REACH. WCTM
[2020-12-12 09:16] VITALS: BP 102/63
--- NOTE | 2020-12-12 09:43 | NUR ---
pt is feeding himself jello at this time. has already eaten an applesauce.
--- NOTE | 2020-12-12 10:55 | NUR ---
DAUGHTER KATIE AND GRANDDAUGHTER STATED PT HAD TO GO TO THE BATHROOM. UPON ARRIVING TO THE ROOM PT STATED THAT HE NEEDED TO GO SOMETIME TODAY BUT NOT RIGHT NOW. CL IN REACH. FAMILY IN ROOM. BED ALARM ON. WCTM
--- NOTE | 2020-12-12 12:46 | NUR ---
FAMILY KATIE AND JOSELITO IN ROOM. NEW IV THERAPY 22G IN RIGHT FOREARM. NANCY JOSEPH SUCCEEDED WITH THIS. I ATTEMPTED X2 WITH NO SUCCESS. PT ATE SOME BANANNA PUDDING. CL IN REACH. WCTM
[2020-12-12 14:22] VITALS: BP 106/59
[2020-12-13 00:55] VITALS: BP 107/57
[2020-12-13 05:41] VITALS: BP 108/54
[2020-12-13 08:26] VITALS: BP 99/45
--- NOTE | 2020-12-13 09:00 | NUR ---
PT GIVEN NEW LINENS. PT HAS HAD 2 LARGE BMS. CL IN REACH. BED ALARM ON. WCTM
--- NOTE | 2020-12-13 14:46 | NUR ---
ASSISTED PT TO THE CHAIR FOR COMFORT. CHAIR ALARM ON. FAMILY IN ROOM. F/C LEAKING 3 ML OF WATER ADDED TO BALLOON. GOWN CHANGED. TM
[2020-12-13 16:54] VITALS: BP 117/59
--- NOTE | 2020-12-14 07:37 | NUR ---
RESTING IN BED WITH EYES OPEN, ALERT AND ORIENTED. IV LOCATED TO RIGHT FOREARM CURRENTLY SL. CURRENTLY RCVING 6L VIA NC. NO CURRENT S/S OF DISTRESS, DENIES CURRENT NEEDS, WILL CONT TO MONITOR.
[2020-12-14 09:03] VITALS: BP 124/64
[2020-12-14 12:53] VITALS: BP 101/53
[2020-12-14 16:01] VITALS: BP 110/61
--- NOTE | 2020-12-14 19:45 | NUR ---
PT LYING IN BED WITHOUT DISTRESS, DENIES NEEDS. BED ALARM ON. CL IN REACH
[2020-12-14 20:00] VITALS: BP 110/66
--- NOTE | 2020-12-14 21:00 | NUR ---
PT TOOK HS MED WITHOUT DIFFICULTY WITH THICKENED WATER. PT STATED MANY TIMES HE WANTS TO GO HOME AND GET OUT OF HERE. EXPLAINED TO PT THAT HE WOULD NOT BE GOING HOME TONIGHT. PT SLAMMING CALL LIGHT ONTO TABLE ANGRY ABOUT NOT GETTING TO GO HOME
--- NOTE | 2020-12-15 02:00 | NUR ---
PT GIVEN BED BATH AT THIS TIME. LINENS CHANGED, HASTINGS CARE PROVIDED. BILAT HEEL PROTECTORS ON WITH LEGS AND ARMS PROPPED ON PILLOWS. PROVIDED COLD THICKENED WATER. DENIES OTHER NEEDS. CL IN REACH
--- NOTE | 2020-12-15 04:20 | NUR ---
PT PUSHED CALL LIGHT, ASKED PT WHAT HE NEEDED. PT STATES "EVERYTHING" ASKED PT WHAT SPECIFICALLY HE NEEDED, PT STATES "WELL DO THEY EVER FEED YOU AROUND HERE" TOLD PT IT WAS ALMOST MORNING AND ALMOST BREAKFAST BUT THAT I COULD GET HIM SOMETHING TO SNACK ON. PT STATES "PLEASE DO" LISTED OPTIONS OF SNACK AND PT STATED HE WANTED ICE CREAM, PUDDING AND COOKIES. SET UP SNACKS IN FRONT OF PT. GAVE CHOCOLATE ICE CREAM, PUDDING AND SOFT WAFER COOKIES. PT FEEDING HIMSELF. STATES THANK YOU SEVERAL TIMES. ATE ALL OF ICE CREAM, HALF THE PUDDING AND ONE OF THE WAFER COOKIES. PROVIDED MORE WATER. DENIES OTHER NEEDS AT THIS TIME. CL IN REACH
--- NOTE | 2020-12-15 07:21 | NUR ---
ALERT AND ORIENTED TO SELF ONLY. ASSESSMENT COMPLETE. BED LOW. BED ALARM ON. CALL SALAS AND PERSONAL ITEMS IN REACH. WILL CONTINUE TO MONITOR.
[2020-12-15 08:38] VITALS: BP 131/68
--- NOTE | 2020-12-15 13:00 | NUR ---
SPOKE WITH DR PALOMARES WHO VOICED CONCERN THAT NURSING STAFF HAS NOT BEEN GIVING PATIENT PRN MORPHINE. STATES "HOSPICE PATIENT'S ARE DIFFERENT. IF HE IS GRIMACING IN PAIN, HE NEEDS THE MORPHINE." MADE MD AWARE THAT PATIENT WAS SPEAKING WITH NURSE IN ROOM THIS MORNING AND STATED CLEARLY THAT HE WAS NOT IN PAIN AND THAT NURSES WOULD NOT BE GIVING PRN PAIN MEDICATION IF PATIENT WAS NOT IN PAIN. ALSO STATES THAT FAMILY IS CONCERNED THAT NURSING STAFF IS HESITANT TO GIVE MORPHINE. ONCE AGAIN, MD MADE AWARE THAT PATIENT HAS NOT BEEN IN PAIN AND THAT IF PATIENT WAS IN PAIN, NURSING STAFF WOULD GIVE MORPHINE. MD ALSO MADE AWARE THAT PATIENT ATE APPLE SAUCE AND PUDDING WITH PROP WORKER SINCE PATIENT WASN'T SEDATED FROM MEDICATION AND WAS AWAKE AND TALKING WITH PROP WORKER STAFF. STATES NURSES NEED TO CHART PATIENT'S INTAKE BETTER. WILL PASS IN REPORT. NO FURTHER ORDERS AT THIS TIME.
--- NOTE | 2020-12-15 14:15 | NUR ---
PATIENT IN BED WITH AT BEDSIDE. ASKED PATIENT IN FRONT OF IF PATIENT WAS IN ANY PAIN. PATIENT SHOOK HEAD NO. ASKED PATIENT IF HE WOULD LIKE ANY PAIN MEDICATION AT THIS TIME. PATIENT CLEARLY STATED "NO I DON'T NEED ANY." CONFIRMED WITH AT BEDSIDE THAT PATIENT WAS CLEARLY STATING HE DID NOT WANT ANYTHING FOR PAIN. WILL CONTINUE TO MONITOR.
--- NOTE | 2020-12-15 16:35 | MORECARE ---
CASE MANAGEMENT DISCHARGE SUMMARY PATIENT: CORRIE SEVILLA UNIT: [id number] ADM DATE: 12/08/20 AGE: 85 : 36 SEX: M ROOM/BED: D.2210 AUTHOR: RAUDEL,DOC PHYSICIAN: REFERRING PHYSICIAN: SABAS PALOMARES MD DATE OF SERVICE: 12/15/20 Case Management Discharge Planning Summary DCP REVIEW SUMMARY ANTICIPATED D/C DATE: EXPECTED LOS : CASE STATUS: DCP Initiated INITIAL REVIEW: 12/08/2020 INITIAL REVIEWER: Shahnaz Mendez FINAL DISCHARGE DISPOSITION: : FINAL REVIEWER: FINAL REVIEW DATE: DCP Focus Questions & Answers - Added on: QUESTION: ANSWER : PATIENT: CORRIE SEVILLA ENCOUNTER: [id number] MEDICAL RECORD#: [id number] ADMISSION DATE: 12/08/2020 DISCHARGE DATE: ATTENDING MD: SABAS GAGE : AGE: 85 MARITAL STATUS: M DC PLAN ID: [id number] FACILITY: [facility] PRINTED ON: 12/15/20 16:35 CT All edits/amendments must be made on the electronic document DICTATION DATE: 12/15/20 163 MASK INSPECTOR: DM 12/15/20 1635 RPT#: [id number] DC DATE: STATUS: ADM IN [facility] [address] [place] [address] END OF REPORT
--- NOTE | 2020-12-15 17:50 | NUR ---
PATIENT'S OUTSIDE ROOM REQUESTING PAIN MEDICATION FOR PATIENT. SPOKE WITH PATIENT WHO STATES HE IS HURTING. PRN MORPHINE GIVEN. WILL CONTINUE TO MONITOR.
--- NOTE | 2020-12-15 18:23 | NUR ---
PATIENT BEDDING CHANGED. MEDIUM BM NOTED.
[2020-12-15 20:00] VITALS: BP 143/62
--- NOTE | 2020-12-15 20:00 | NUR ---
PT SITTING UP IN BED WATCHING TV. SIPPING ON THICKENED WATER AT BEDSIDE BY HIMSELF LONG IT IS WITHIN REACH. USING CALL LIGHT FOR NEEDS. DENIES NEEDS AT THIS TIME. ASKED PT IF HE WAS HURTING ANYWHERE OR HAD ANY PAIN. PT STATES NO. ASKED PT IF HE WAS COMFORTABLE IN THE POSITION HE WAS IN, PT STATES YES. BED ALARM ON, CL IN REACH
--- NOTE | 2020-12-15 22:00 | NUR ---
PT SITTING UP IN BED WITHOUT DISTRESS, ORIENTED TO SELF ONLY. ASKED THIS NURSE TO TURN TV OFF, STATES HE IS GOING TO SLEEP. PT CUP ALMOST EMPTY, REFILLED WITH THICKENED WATER. DENIES OTHER NEEDS. STATES HE IS COMFORABLE AND STATES NO PAIN AT THIS TIME. CL IN REACH
--- NOTE | 2020-12-16 03:00 | NUR ---
PT LYING IN BED SLEEPING COMFORTABLY, WITHOUT DISTRESS. CL IN REACH, BED ALARM ON
--- NOTE | 2020-12-16 07:42 | NUR ---
PATIENT AWAKE, ALERT ORIENTED TO SELF, ABLE TO VOICE NEEDS, NO NEEDS AT THIS TIME. PATIENT REQUESTED COFFEE EARLY THIS MORNING AND RECIEVED COFFEE WITH THICKENER IN IT. CONTINUE WITH PLAN OF CARE
[2020-12-16 09:10] VITALS: BP 118/67
--- NOTE | 2020-12-16 09:42 | NUR ---
PATIENT REFUSED BISCUIT AND GRAVY THIS MORNING BUT ATE ALL OF HIS PUDDING AND CLAUDINE CRACKERS, DRANK ALL OF HIS MILK AND LIKES TO DRINK WATER. NO TOEHR NEEDS AT THIS TIME. CONTINUE WITH PLAN OF CARE
--- NOTE | 2020-12-16 10:03 | NUR ---
I have reviewed this patient and I concur with the Shift Assessment completed by the Licensed Practical Nurse today this shift.
--- NOTE | 2020-12-16 12:16 | NUR ---
PATIENT FAMILY AT BEDSIDE, PATIENT C/O BEING AT THE DENTIST OFFICE AND NO ONE HAS COME IN 4 HOURS TO SEE HIM. PATIENT IS WANTING TO GO OUTSIDE FOR FRESH AIR AND SUNSHINE, PATIENT SPOUSE FEELS CONFLICTED, ADMINISTERED PRN PAIN MEDICATION TO KEEP PT ANXIETY DOWN, CONTINUE WITH PLAN OF CARE
--- NOTE | 2020-12-16 13:38 | NUR ---
PATIENT FAMILY HAS LEFT FOR AFTERNOON. STATED THEY WILL BE BACK IN A FEW HOURS AND THAT PATIENT IS SLEEPING. DOOR IS OPEN, PATIENT IN BED NO S/S OF DISTRESS, CONTINUE WITH PLAN OF CARE
--- NOTE | 2020-12-16 16:04 | NUR ---
PATIENT RESP 10 WITH PERIODS OF APNEA, O2 OFF PATIENT CONTINUES TO TAKE OFF AND STATED "WHEN YOU PUT IT ON I WILL TAKE IT OFF" REAPPLIED O2 CONTINUE WITH PLAN OF CARE
[2020-12-16 20:00] VITALS: BP 110/80
--- NOTE | 2020-12-16 20:30 | NUR ---
PT LYING IN BED SLEEPING, WITHOUT DISTRESS, O2 ON AT THIS TIME BUT PT DOES PULL IT OFF AT TIMES. WOKE PT UP TO TAKE ANTIBIOTIC. PT TOOK WITHOUT DIFFICULTY THEN DRANK THICKENED WATER. DENIES PAIN OR OTHER NEEDS. CL IN REACH, BED ALARM ON
--- NOTE | 2020-12-17 01:00 | NUR ---
PT LYING IN BED SLEEPING WITHOUT DISTRESS, CL IN REACH
--- NOTE | 2020-12-17 06:00 | NUR ---
PT HAD LARGE BOWEL MOVEMENT. GAVE PT BED BATH AT THIS TIME. LINENS CHANGED, HASTINGS CARE GIVEN. LEGS AND ARMS PROPPED ON PILLOWS, BILAT HEEL PROTECTORS ON. PT WAS ABLE TO TURN SELF DURING BATH. STATES NO PAIN DURING BATH. PT REQUESTED AND GIVEN COLD THICKENED WATER. GAVE TO PT. PT ABLE TO GRAB OFF TABLE NEEDED AND DRINK THROUGH STRAW. CL IN REACH. DENIES FURTHER NEEDS
--- NOTE | 2020-12-17 07:39 | NUR ---
PT IS RESTING IN BED WITH EYES OPEN. RESPIRATIONS ARE EVEN AND UNLABORED. O2 VIA NC @ 6L HUMIDIFIED. PT IS ALERT AND ANSWERS QUESTIONS WITHOUT DIFFICULTY. SPEECH IS QUIET BUT UNDERSTANDABLE. PIV TO RIGHT FA IS SL AND FLUSHES WITHOUT DIFFICULTY. PT DENIES PRESENCE OF PAIN/N/V AT THIS TIME. NO APPARENT S/S OF PAIN/DISTRESS NOTED AT THIS TIME. HASTINGS CATHETER IN PLACE AND DRAINING WITHOUT COMPROMISE. STAT LOCK TO LEFT THIGH. PT WITH HONEY THICK H2O AT BEDSIDE AND IS ABLE TO DRINK FROM STRAW WITHOUT ASSISTANCE. PT IS ABLE TO REPOSITION SELF IN BED WHEN PROMPTED. HEEL PROTECTORS NOTED TO BLE. SCABS TO BLE NOTED. SCAB TO RIGHT HAND NOTED. PT STATES, "IT IS A SCRAPE". CONTACT ISOLATION PRECAUTIONS IN PLACE AND FOLLOWED. PT DENIES PRESENCE OF DYSPNEA/SOB AT THIS TIME. PT DENIES PRESENCE OF N/V/NUMBNESS/TINGLING AT THIS TIME. BED IS IN THE LOWEST POSITION. CALL LIGHT AND BEDSIDE TABLE ARE WITHIN REACH. SIDE RAILS X 2. PT DENIES FURTHER NEEDS. WILL CONT TO MONITOR.
--- NOTE | 2020-12-17 08:43 | NUR ---
PT DAUGHTER AT BEDSIDE. MEDICATION ADMINISTERED PER ORDER. PT INSISTENT ON ADMINISTERING MEDICATION ON HIS OWN. NO DIFFICULTIES SEEN WITH SWALLOWING. PT ENCOURAGED TO EAT BREAKFAST BUT STATES "NOT HUNGRY" AT THIS TIME. CONTACT PRECAUTIONS IN PLACE AND FOLLOWED. BED IS IN THE LOWEST POSITION. CALL L IGHT AND BEDSIDE TABLE ARE WITHIN REACH. SIDE RAILS X 2. PT DENIES PRESENCE OF PAIN. DAUGHTER STATES "HIS FEET ARE ALWAYS SORE". PT REPLIES "I AM FINE RIGHT NOW". WILL CONT TO MONITOR.
[2020-12-17 09:11] VITALS: BP 108/71
--- NOTE | 2020-12-17 10:42 | NUR ---
PT DAUGHTER AND [facility] NURSE AT BEDSIDE. CONTACT PRECAUTIONS IN PLACE AND FOLLOWED. PT IS AWAKE AND TALKATIVE WITH UNDERSTANDABLE SPEECH. DAUGHTER AND HOSPICE NURSE INSIST ON MORPHINE FOR PAIN CONTROL AND SOB. WHEN PT ASKED IF IN PAIN PT STATES NO AND WHEN PT ASKED IF PAIN MEDICATION WANTED PT STATES "NO!" PT IS ANSWERING QUESTIONS WITHOUT DIFFICULTY. O2 SAT @ 98% ON ROOM AIR. PT TAKING DEEP BREATHS BUT DENIES PRESENCE OF DYSPNEA AT THIS TIME. FALL PRECAUTIONS IN PLACE. BED IS IN THE LOWEST POSITION. CALL LIGHT AND BEDSIDE TABLE ARE WITHIN REACH. SIDE RAILS X 2. PT/PT DAUGHTER/HOSPICE NURSE DENY FURTHER NEEDS AT THIS TIME. WILL CONT TO MONITOR.
--- NOTE | 2020-12-17 11:56 | NUR ---
PT SPOUSE AT BEDSIDE. PT ANSWERS QUESTIONS AND RESPONDS TO COMMUNICATION. PT SPEECH IS UNDERSTANDABLE. PT DENIES PRESENCE OF PAIN. NO APPARENT S/S OF PAIN/DISTRESS NOTED AT THIS TIME. PT AND PT SPOUSE DENY FURTHER NEEDS. CONTACT PRECAUTIONS IN PLACE AND FOLLOWED. BED IS IN THE LOWEST POSITION. CALL LIGHT AND BEDSIDE TABLE ARE WITHIN REACH. SIDE RAILS X 2. PT DENIES FURTHER NEEDS. WILL CONT TO MONITOR.
--- NOTE | 2020-12-17 12:34 | NUR ---
Nutrition follow-up: Visited with pts daughter outside of pts room. Daughter reports pt is not eating much; ice cream, mashed potatoes at times Will continue to provide food choices and honor all food preferences. RDN will follow-up: 12/24/20
--- NOTE | 2020-12-17 13:13 | NUR ---
PT REPORTS PAIN TO BILATERAL FEET RATED 8/10. PT REQUESTING PAIN MEDICATION AT THIS TIME. WILL ADMINISTER PER ORDER. PT SO AT BEDSIDE. FALL PRECAUTIONS IN PLACE. BED IS IN THE LOWEST POSITION. CALL LIGHT AND BEDSIDE TABLE ARE WITHIN REACH. SIDE RAILS X 2. PT AND PT SO DENY FURTHER NEEDS. WILL CONT TO MONITOR.
--- NOTE | 2020-12-17 18:40 | NUR ---
PT RESTING IN BED WITH EYES CLOSED AND AROUSABLE WITH VERBAL STIMULATION. PT ACKNOWLEDGES NURSE PRESENCE AND WHEN ASKED ABOUT PAIN PT STATES "I DONT HAVE ANY". HASTINGS CATHETER EMPTIED 100ML DARK TEA COLORED URINE. PT RETURNS TO RESTING STATE WITH EYES CLOSED. RESPIRATIONS ARE EVEN AND UNLABORED. BED IS IN THE LOWEST POSITION. CALL LIGHT AND BEDSIDE TABLE ARE WITHIN REAHC. SIDE RAILS X 2. FALL PRECAUTIONS IN PLACE. CONTACT ISOLATION IN PLACE AND FOLLOWED.WILL CONT TO MONITOR.
[2020-12-17 20:00] VITALS: BP 128/77
--- NOTE | 2020-12-17 20:00 | NUR ---
PT SITTING UP IN BED SIPPING ON WATER. TOOK KEFLEX WITHOUT DIFFICULTY. ASKED PT IF HE WAS HAVING ANY PAIN AND WANTED PAIN MEDICATION, PT STATES NO. PROPPED PT LEGS AND ARMS UP ON PILLOWS. PT ASKED FOR LIGHTS TO BE TURNED OFF SO HE COULD SLEEP. DENIES OTHER NEEDS. CL IN REACH
--- NOTE | 2020-12-18 08:00 | NUR ---
PATIENT C/O ABD PAIN THIS MORNING, DESCRIBES MORE OF CRAMPING, ADMINISTER PRN PAIN MEDICATION WITH SCHEDULED MEDICATION, NO FAMILY AT BEDSIDE AT THIS TIME. CONTINUE WITH PLAN OF CARE
--- NOTE | 2020-12-18 08:10 | NUR ---
I have reviewed this patient and I concur with the Shift Assessment completed by the Licensed Practical Nurse today this shift.
[2020-12-18 09:33] VITALS: BP 111/68
[2020-12-18] MEDS ORDERED: CEPHALEXIN125 MG/5 M PO (12:00)
[2020-12-18] MEDS ORDERED: Morphine CONCENTRATE SL (12:01)
--- NOTE | 2020-12-18 13:30 | NUR ---
ADMINISTER PATIENT PRN PAIN MEDICATON PT WILL BE TRANSPORTED TO [facility] FOR [facility]. DAUGHTER AND SPOUSE AT BEDSIDE CONTINUE WITH PLAN OF CARE
--- NOTE | 2020-12-18 14:00 | NUR ---
CALLED AND GAVE REPORT TO KRISTIE MALDONADO [facility], PATIENT BEING PICKED UP BY AMBULANCE, DAUGHTER WILL RIDE WITH HIM AND SPOUSE TO FOLLOW.
--- NOTE | 2020-12-21 15:47 | MORECARE ---
CASE MANAGEMENT DISCHARGE SUMMARY PATIENT: CORRIE SEVILLA UNIT: [id number] ADM DATE: 12/08/20 AGE: 85 : 37 SEX: M ROOM/BED: D.2210 AUTHOR: RAUDEL,DOC PHYSICIAN: REFERRING PHYSICIAN: SABAS PALOMARES MD DATE OF SERVICE: 12/21/20 Case Management Discharge Planning Summary CT Patient Name: CORRIE SEVILLA Attending MD : SABAS DUNCAN Medical Record: [id number] Encounter : [id number] Facility : [address] [place] [address] Admission Date : 120:19 Center Discharge Date : 12/18/[address] [place] [address] Date of : DC Plan ID : [id number] Age/Sex/Martia : 85/ M/M Printed on : 12/21/20 15:45 CT DCP Review Details Anticipated D/C: Expected LOS : Case Status : INITIATED - Initial Reviewe: [id number] - Shahnaz Mendez Initial Review: 12/08/2020 Planned Disposi: 41 - in a Medical Facility (Hospice Claims) Final Discharge: - Final Reviewer : : Final Review : DCP [facility] CORRIE SEVILLA MR#: [id number] /Age/Sex/Krixhg62-Nsb-34 /85/M /M Attending Physician Name: FREDO PALOMARES [id number] Patient Account:[id number] [facility] Page -1 of 1 All edits/amendments must be made on the electronic document DICTATION DATE: 12/21/20 154 PATENT COUNSEL: KETTY 12/21/20 1545 RPT#: [id number] DC DATE:12/18/20 STATUS: [place] [address] END OF REPORT
--- NOTE | 2020-12-22 09:55 | MORECARE ---
CASE MANAGEMENT DISCHARGE SUMMARY PATIENT: CORRIE SEVILLA UNIT: [id number] ADM DATE: 12/08/20 AGE: 85 : 36 SEX: M ROOM/BED: D.2210 AUTHOR: RAUDEL,DOC PHYSICIAN: REFERRING PHYSICIAN: SABAS PALOMARES MD DATE OF SERVICE: 12/22/20 Case Management Discharge Planning Summary CT Patient Name: CORRIE SEVILLA Attending MD : SABAS DUNCAN Medical Record: [id number] Encounter : [id number] Facility : [address] [place] [address] Admission Date : 120:19 Center Discharge Date : 12/18/[address] [place] [address] Date of : DC Plan ID : [id number] Age/Sex/Martia : 85/ M/M Printed on : 12/22/20 9:54 CT DCP Review Details Anticipated D/C: Expected LOS : Case Status : INITIATED - Initial Reviewe: [id number] - Shahnaz Mendez Initial Review: 12/08/2020 Planned Disposi: 41 - in a Medical Facility (Hospice Claims) Final Discharge: - Final Reviewer : : Final Review : DCP [facility] CORRIE SEVILLA MR#: [id number] /Age/Sex/Gpjeju63-Usy-05 /85/M /M Attending Physician Name: FREDO PALOMARES [id number] Patient Account:[id number] [facility] Page -1 of 1 All edits/amendments must be made on the electronic document DICTATION DATE: 12/22/20 09 SPOTTER: KETTY 12/22/20953 RPT#: [id number] DC DATE:12/18/20 STATUS: [place] [address] END OF REPORT
== END 2020-12-18 16:07 | disposition hospice, inpatient (51) | DRG 951 ==
LOC: D.MS 20:19
PROVIDERS: ADMIT Family Medicine; ATTEND Family Medicine
DX: Z51.5 Encounter for palliative care (principal)